=== PATIENT | male | born 1985 | race African-American/Black ===

== ENCOUNTER 2021-04-26 16:14 | Inpatient (IN) ==
[2021-04-26] MEDS ORDERED: levETIRAcetam 2,000 MG in 0.9 % SODIUM CHLORIDE 100 ML IV STA (16:18)
--- NOTE | 2021-04-26 16:27 | Emergency Department Note ---
Impression & Plan Intractable seizure disorder, Seizures, Noncompliance with medication regimen ED Provider Note NAME: [id number] INTERLOCHEN AGE: 35 SEX: M : 1985 ARRIVES VIA: Ambulance INFORMANT: Patient, EMS ED PROVIDER(S): Alexy Guardado DO CHIEF COMPLAINT: Seizure HPI: The patient is a 35-year-old male who presented to the emergency department from the [facility] for an evaluation of seizure. The patient states that he had an episode of seizure while he was in his bunk. The patient was given IM Ativan. He was witnessed to have approximately 6 seizures prior to arrival. Reportedly the patient has not been compliant with his outpatient medication regimen over the last week but he admits to me that this been much longer since he has taken his medications. He has a history of seizure disorder since his late teens. He denies having any recent trauma. He denies having any headaches. He has had no recent drug ingestions and denies any previous drug or alcohol abuse. The patient states he has a headache. He is slow to answer questions. The patient reportedly is in normal health otherwise. He has had no fevers or coughing. He has had no previous difficulty ambulating. As previously stated he was given IM Ativan after having multiple seizures. ROS: See above HPI for pertinent positives & negatives. A total of 10 systems reviewed and were otherwise negative. PAST MEDICAL HISTORY: See Below PAST SURGICAL HISTORY: See Below FAMILY HISTORY: See Below SOCIAL HISTORY: See Below HOME MEDICATIONS: See Below ALLERGIES: See Below VITALS: See Below PHYSICAL EXAMINATION: GENERAL: The patient is awake to verbal commands. He is slow to answer questions but does follow commands correctly. EYES: The conjunctivae are clear. The pupils are round and reactive. EARS, NOSE, MOUTH AND THROAT: The nose is without any evidence of any deformity. NECK: The neck is nontender and supple. RESPIRATORY: Normal respiratory effort is noted there is no evidence of wheezing rhonchi or rales CARDIOVASCULAR: Regular rate and rhythm noted there no murmurs rubs or gallops normal S1 normal S2. GASTROINTESTINAL: The abdomen is soft. Abdomen is nontender. MUSCULOSKELETAL/EXTREMITIES: There is no evidence of gross deformity full range of motion is noted in the hips and shoulders. SKIN: There is no obvious evidence of any rash. There are no petechiae, pallor or cyanosis noted. NEUROLOGIC: Patient is awake and oriented to person place and situation. Patellar tendon reflexes are 1+ bilaterally. MEDICAL DECISION MAKING: The patient is a 35-year-old male who presented to emergency department for an evaluation of seizure. The patient had multiple seizures at the [facility] prior to arrival. He was treated with Ativan. Upon arrival he was no longer seizing and was able to give some history. He was having effects from the benzodiazepine. The patient started having seizures while in the emergency department. When he told me he was noncompliant with his medications a dose of Keppra was ordered. He then started having seizures and was ordered fosphenytoin followed by valproic acid. He was also given multiple doses of benzodiazepines. The patie nt had some lethargy after the benzodiazepines. He was placed on supplemental oxygen. He was reevaluated multiple times. Consideration for intubation was taken however the patient started to improve and ultimately did not require intubation. He did have 1 more seizure after I talked the admitting team. This was short-lived. I discussed the patient's laboratory and radiographic studies with him. [facility] They have agreed to evaluate the patient in the emergency department for further management and disposition. Triage Nursing notes reviewed. Prior medical records reviewed Vital Signs: reviewed and remarkable for no significant abnormalities Differential diagnosis: Epilepsy, infection, hypoglycemia, electrolyte abnormalities, cardiac sources, intracerebral event, trauma, toxicologic, neurologic, syncope, as well as other pathologies. ER treatment provided: See below Diagnostics interpreted by me: ECG: EKG was obtained in the emergency department. My interpretation is normal sinus rhythm at 33 bpm. There is no ectopy. There was no acute ST segment abnormalities noted. No previous tracing was available. Cardiac Monitoring: An order was placed for continuous cardiac monitoring. The monitor shows a rate of 70 bpm with sinus rhythm. Laboratory studies: As stated above and show below. Imaging studies: See below Consultation(s): I discussed this case with Dr. Guy who is [facility]. He would like me to discuss this case with the logistics support group. I discussed this case with Dr. Dimas who is on for logistics support. ED COURSE: Procedures: none Critical Care: I have personally spent greater than 55 minutes of critical care time in the direct management of this patient. This includes bedside care, interpretation of diagnostic studies, and testing, discussion with consultants, patient, and family members, and other required patient management activities. This 55 minutes is in excess of all separately billable procedures. Past Med/Surg History Medical History (Updated 04/26/21 @ 23:08 by Alexy Guardado DO) Asthma Hypertension Seizures Social History (Updated 04/26/21 @ 16:25 by Alexy Guardado DO) Smoking Status: Former smoker Tobacco Type: Cigarettes Hx Alcohol Use: No Hx Substance Use: No Feels Safe at Home: Yes Allergies Allergies Allergy/AdvReac Type Severity Reaction Status Date / Time brown Allergy Unknown Verified 04/26/21 17:35 Penicillins Allergy Unknown Verified 04/26/21 17:35 ONIONS Allergy Unknown Uncoded 04/26/21 17:35 Home Meds Home Medications Medication Instructions Recorded Confirmed amlodipine 10 mg tablet 10 mg PO DAILY 04/26/21 04/26/21 aripiprazole 15 mg tablet 15 mg PO DAILY 04/26/21 04/26/21 hydroxyzine HCl 50 mg tablet 100 mg PO HS 04/26/21 04/26/21 levalbuterol tartrate 45 2 inh INHALATION QID PRN 04/26/21 04/26/21 mcg/actuation aerosol inhaler (Xopenex HFA) levetiracetam 750 mg tablet 750 mg PO BID 04/26/21 04/26/21 phenytoin sodium extended 100 mg 200 mg PO BID 04/26/21 04/26/21 capsule (Dilantin Extended) topiramate 50 mg tablet 50 mg PO HS 04/26/21 04/26/21 trazodone 150 mg tablet 150 mg PO HS 04/26/21 04/26/21 Results & Data (ED) Vital Signs Vital Signs - 24 hr 04/26/21 16:24 04/26/21 16:44 04/26/21 16:45 Temperature 37.0 C Temperature Source Oral Pulse Rate 76 63 65 Pulse Rate [Finger] Pulse Rate from SpO2 Sensor 64 66 Respiratory Rate 20 12 15 Respiratory Effort / Characteristics Non-Labored Spontaneous Respiratory Depth Normal Respiratory Pattern Regular Blood Pressure 136/99 Blood Pressure [Left Arm] Blood Pressure Mean 111 Blood Pressure Mean [Left Arm] Pulse Oximetry 97 95 96 Oxygen Delivery Method Room Air Oxygen Flow Rate Fraction of Inspired Oxygen Sepsis Recent Fever Within 48 Hours No Sepsis New/Unexplained Change in Mental Status N/A Sepsis Action Taken by Nursing No Action Required 04/26/21 17:00 04/26/21 17:16 04/26/21 17:20 Temperature Temperature Source Pulse Rate 87 Pulse Rate [Finger] 122 H Pulse Rate from SpO2 Sensor 90 88 Respiratory Rate 20 22 Respiratory Effort / Characteristics Respiratory Depth Respiratory Pattern Blood Pressure 138/87 Blood Pressure [Left Arm] 161/93 H Blood Pressure Mean 104 Blood Pressure Mean [Left Arm] 115 Pulse Oximetry 87 L 95 97 Oxygen Delivery Method Room Air Oxygen Flow Rate Fraction of Inspired Oxygen Sepsis Recent Fever Within 48 Hours Sepsis New/Unexplained Change in Mental Status Sepsis Action Taken by Nursing 04/26/21 17:30 04/26/21 17:31 04/26/21 17:53 Temperature Temperature Source Pulse Rate 99 H 99 H Pulse Rate [Finger] 103 H Pulse Rate from SpO2 Sensor 101 H Respiratory Rate 10 L 22 Respiratory Effort / Characteristics Non-Labored Spontaneous Respiratory Depth Respiratory Pattern Blood Pressure 128/73 Blood Pressure [Left Arm] Blood Pressure Mean 91 Blood Pressure Mean [Left Arm] Pulse Oximetry 97 97 Oxygen Delivery Method High Flow Nasal Cannula Oxygen Flow Rate 25 Fraction of Inspired Oxygen 45 Sepsis Recent Fever Within 48 Hours Sepsis New/Unexplained Change in Mental Status Sepsis Action Taken by Nursing 04/26/21 18:00 04/26/21 18:15 04/26/21 18:30 Temperature Temperature Source Pulse Rate 72 94 H 90 Pulse Rate [Finger] Pulse Rate from SpO2 Sensor 75 89 82 Respiratory Rate 16 18 15 Respiratory Effort / Characteristics Respiratory Depth Respiratory Pattern Blood Pressure 119/81 Blood Pressure [Left Arm] Blood Pressure Mean 93 Blood Pressure Mean [Left Arm] Pulse Oximetry 98 95 87 L Oxygen Delivery Method Oxygen Flow Rate Fraction of Inspired Oxygen Sepsis Recent Fever Within 48 Hours Sepsis New/Unexplained Change in Mental Status Sepsis Action Taken by Nursing 04/26/21 18:45 04/26/21 19:00 04/26/21 19:10 Temperature Temperature Source Pulse Rate Pulse Rate [Finger] Pulse Rate from SpO2 Sensor 93 H 88 78 Respiratory Rate Respiratory Effort / Characteristics Respiratory Depth Respiratory Pattern Blood Pressure 126/78 Blood Pressure [Left Arm] Blood Pressure Mean 94 Blood Pressure Mean [Left Arm] Pulse Oximetry 97 95 96 Oxygen Delivery Method Oxygen Flow Rate Fraction of Inspired Oxygen Sepsis Recent Fever Within 48 Hours Sepsis New/Unexplained Change in Mental Status Sepsis Action Taken by Nursing 04/26/21 19:21 04/26/21 19:30 04/26/21 19:41 Temperature Temperature Source Pulse Rate 78 86 Pulse Rate [Finger] Pulse Rate from SpO2 Sensor Respiratory Rate Respiratory Effort / Characteristics Respiratory Depth Respiratory Pattern Blood Pressure 121/98 113/72 140/93 Blood Pressure [Left Arm] Blood Pressure Mean 105 85 108 Blood Pressure Mean [Left Arm] Pulse Oximetry 98 97 Oxygen Delivery Method Room Air Room Air Oxygen Flow Rate Fraction of Inspired Oxygen Sepsis Recent Fever Within 48 Hours Sepsis New/Unexplained Change in Mental Status Sepsis Action Taken by Nursing 04/26/21 19:51 04/26/21 20:03 Temperature Temperature Source Pulse Rate 82 Pulse Rate [Finger] Pulse Rate from SpO2 Sensor Respiratory Rate Respiratory Effort / Characteristics Respiratory Depth Respiratory Pattern Blood Pressure Blood Pressure [Left Arm] Blood Pressure Mean Blood Pressure Mean [Left Arm] Pulse Oximetry 99 98 Oxygen Delivery Method Room Air Room Air Oxygen Flow Rate Fraction of Inspired Oxygen Sepsis Recent Fever Within 48 Hours Sepsis New/Unexplained Change in Mental Status Sepsis Action Taken by Care Home Medications Current Medication List: was personally reviewed by me Laboratory Data Attestation: I reviewed the patient's lab results. Result diagrams: 04/26/21 16:30 04/26/21 16:30 Lab Results 04/26/21 04/26/21 04/26/21 Range/Units 16:30 16:30 16:30 WBC 3.69 L (4.8-10.8) K/uL RBC 5.12 (4.7-6.1) M/uL Hgb 16.2 (14.0-18.0) g/dL Hct 47.7 (42-52) % MCV 93.2 (80-100) fL MCH 31.6 (25-34) pg MCHC 34.0 (32-36) g/dL RDW Std Deviation 41.3 (36.4-46.3) fL RDW Coeff of Kaushik 12.2 (11.5-14.5) % Plt Count 205 (130-400) K/uL MPV 10.9 H (7.4-10.4) fL Immature Gran % (Auto) 0.0 % Neut % (Auto) 56.4 % Lymph % (Auto) 35.2 % Whitman % (Auto) 7.3 % Eos % (Auto) 0.3 % Baso % (Auto) 0.8 % Neut # (Auto) 2.08 (1.4-6.5) K/uL Lymph # (Auto) 1.30 (1.2-3.4) K/uL Whitman # (Auto) 0.27 (0.11-0.59) K/uL Eos # (Auto) 0.01 (0-0.5) K/uL Baso # (Auto) 0.03 (0-0.2) K/uL Immature Gran # (Auto) 0.00 (0.00-0.02) K/uL Sodium 141 (136-145) mmol/L Potassium 4.2 (3.5-5.1) mmol/L Chloride 109 H (98-107) mmol/L Carbon Dioxide 27 (21-32) mmol/L Anion Gap 5.0 (3-11) BUN 14 (7-18) mg/dl Creatinine 1.31 (0.6-1.4) mg/dl Est Cr Clr Drug Dosing 103.7 ml/min Est GFR ( Amer) 82.3 ml/min Est GFR (Non-Af Amer) 71.0 ml/min BUN/Creatinine Ratio 10.5 (10-20) Glucose 89 (70-99) mg/dl Calcium 8.5 (8.5-10.1) mg/dl Magnesium 2.0 (1.8-2.4) mg/dl Total Bilirubin 0.4 (0.2-1) mg/dl AST 18 (15-37) U/L ALT 24 (12-78) Alkaline Phosphatase 75 (45-117) U/L Total Creatine Kinase 281 (39-308) U/L Troponin I < 0.015 (0-0.045) ng/ml Total Protein 8.4 H (6.4-8.2) gm/dl Albumin 4.1 (3.4-5.0) gm/dl Globulin 4.3 H (2.5-4.0) gm/dl Albumin/Globulin Ratio 1.0 (0.9-2) Urine Color Urine Appearance (Clear) Urine pH (4.5-7.5) Ur Specific [place] (1.000-1.030) Urine Protein (Negative) Urine Glucose (UA) (Negative) Urine Ketones (Negative) Urine Blood (Negative) Urine Nitrite (Negative) Urine Bilirubin (Negative) Urine Urobilinogen (Negative) Ur Leukocyte Esterase (Negative) Urine Opiates Screen (Neg) Ur Methadone, Qual (Neg) Urine Barbiturates (Neg) Phenytoin < 0.4 L (10-20) mcg/ml Ur Phencyclidine (PCP) (Neg) U Amphetamin/Meth Scrn (Neg) MDMA (Ecstasy) Screen (Neg) U Benzodiazepines Scrn (Neg) Ur Cocaine Metabolite (Neg) U Marijuana (THC) Screen (Neg) SARS-CoV-2, RNA, NAAT (NEGATIVE) 04/26/21 04/26/21 04/26/21 Range/Units 17:25 18:55 18:55 WBC (4.8-10.8) K/uL RBC (4.7-6.1) M/uL Hgb (14.0-18.0) g/dL Hct (42-52) % MCV (80-100) fL MCH (25-34) pg MCHC (32-36) g/dL RDW Std Deviation (36.4-46.3) fL RDW Coeff of Kaushik (11.5-14.5) % Plt Count (130-400) K/uL MPV (7.4-10.4) fL Immature Gran % (Auto) % Neut % (Auto) % Lymph % (Auto) % Whitman % (Auto) % Eos % (Auto) % Baso % (Auto) % Neut # (Auto) (1.4-6.5) K/uL Lymph # (Auto) (1.2-3.4) K/uL Whitman # (Auto) (0.11-0.59) K/uL Eos # (Auto) (0-0.5) K/uL Baso # (Auto) (0-0.2) K/uL Immature Gran # (Auto) (0.00-0.02) K/uL Sodium (136-145) mmol/L Potassium (3.5-5.1) mmol/L Chloride (98-107) mmol/L Carbon Dioxide (21-32) mmol/L Anion Gap (3-11) BUN (7-18) mg/dl Creatinine (0.6-1.4) mg/dl Est Cr Clr Drug Dosing ml/min Est GFR ( Amer) ml/min Est GFR (Non-Af Amer) ml/min BUN/Creatinine Ratio (10-20) Glucose (70-99) mg/dl Calcium (8.5-10.1) mg/dl Magnesium (1.8-2.4) mg/dl Total Bilirubin (0.2-1) mg/dl AST (15-37) U/L ALT (12-78) Alkaline Phosphatase (45-117) U/L Total Creatine Kinase (39-308) U/L Troponin I (0-0.045) ng/ml Total Protein (6.4-8.2) gm/dl Albumin (3.4-5.0) gm/dl Globulin (2.5-4.0) gm/dl Albumin/Globulin Ratio (0.9-2) Urine Color Yellow Urine Appearance Clear (Clear) Urine pH 7.0 (4.5-7.5) Ur Specific [place] 1.026 (1.000-1.030) Urine Protein Negative (Negative) Urine Glucose (UA) Negative (Negative) Urine Ketones Trace H (Negative) Urine Blood Negative (Negative) Urine Nitrite Negative (Negative) Urine Bilirubin Negative (Negative) Urine Urobilinogen Negative (Negative) Ur Leukocyte Esterase Negative (Negative) Urine Opiates Screen Neg (Neg) Ur Methadone, Qual Neg (Neg) Urine Barbiturates Neg (Neg) Phenytoin (10-20) mcg/ml Ur Phencyclidine (PCP) Neg (Neg) U Amphetamin/Meth Scrn Neg (Neg) MDMA (Ecstasy) Screen Neg (Neg) U Benzodiazepines Scrn Neg (Neg) Ur Cocaine Metabolite Neg (Neg) U Marijuana (THC) Screen Neg (Neg) SARS-CoV-2, RNA, NAAT NEGATIVE (NEGATIVE) Administered Medications Discontinued Medications Sodium Chloride (Nss 1000ml) 1,000 mls @ 999 mls/hr IV .[id number] VALORIE Stop: 04/26/21 17:30 Last Infusion: 04/26/21 19:44 Dose: 999 mls/hr Documented by: [id number] Admin: 04/26/21 17:06 Dose: 999 mls/hr Documented by: [id number] Levetiracetam 2,000 mg/ Sodium (Chloride) 100 mls @ 440 mls/hr IV NOW STA Stop: 04/26/21 16:31 Last Infusion: 04/26/21 17:05 Dose: 0 mls/hr Documented by: [id number] Admin: 04/26/21 16:50 Dose: 440 mls/hr Documented by: [id number] Lorazepam (Ativan) 1 mg in 2 mls @ 2 mls/min IV NOW STA Stop: 04/26/21 16:57 Last Admin: 04/26/21 17:08 Dose: 2 mls/min Documented by: [id number] Fosphenytoin Sodium 2,000 mgpe (/ Sodium Chloride) 90 mls @ 420 mls/hr IV NOW STA Stop: 04/26/21 17:06 Last Infusion: 04/26/21 17:31 Dose: 0 mls/hr Documented by: [id number] Admin: 04/26/21 17:18 Dose: 420 mls/hr Documented by: [id number] Valproic Acid 2,000 mg/ (Dextrose) 120 mls @ 120 mls/hr IV ONE ONE Stop: 04/26/21 17:27 Last Infusion: 04/26/21 19:44 Dose: 120 mls/hr Documented by: [id number] Admin: 04/26/21 17:36 Dose: 120 mls/hr Documented by: [id number] Lorazepam (Lorazepam 2 Mg/Ml Vial (Im Use)) Confirm Administered Dose 2 mg .ROUTE .STK-MED ONE Stop: 04/26/21 16:53 Last Admin: 04/26/21 16:56 Dose: 1 mg Documented by: [id number] Lorazepam (Lorazepam 2 Mg/Ml Vial (Im Use)) Confirm Administered Dose 2 mg .ROUTE .STK-MED ONE Stop: 04/26/21 17:03 Last Admin: 04/26/21 17:08 Dose: Not Given Documented by: [id number] Miscellaneous (Rapid Sequence Induction Bag) Confirm Administered Dose 1 ea .ROUTE .STK-MED ONE Stop: 04/26/21 17:13 Last Admin: 04/26/21 18:13 Dose: Not Given Documented by: [id number] Imaging Data Radiologist's Impression: Chest X-Ray 04/26/21 16:18 XR chest 1V portable CLINICAL HISTORY: Seizure. COMPARISON STUDY: No previous studies for comparison. FINDINGS: Lung volumes are normal. Lungs are clear. There is no pneumothorax or pleural effusion. Cardiac size is normal. Mediastinal contours are normal. There is no evidence for pulmonary edema. There are several possible age indeterminate left-sided rib fractures. IMPRESSION: Possible age indeterminate left-sided rib fractures. No pneumothorax. ACT 112: Negative or not required by law. Electronically signed by: Javier Jane M.D. 04/26/2021 4:[address] 04/26/21 16:18 CT head/brain wo con CLINICAL HISTORY: SZ Technique: Contiguous axial CT images of the head were acquired from the base of the skull to the vertex without intravenous contrast administration. Images were viewed in brain, subdural and bone windows. Automated dose lowering techniques and/or adjustment according to patient size were utilized for this exam. Comparison: None available at the time of this dictation. Findings: The ventricles, basal cisterns, and cerebral sulci are normal. There is no acute intracranial hemorrhage or evidence of acute territorial infarction. Neither mass effect, shift of the midline structures, nor abnormal extra-axial fluid collections are shown. Imaged portions of the paranasal sinuses and mastoid air cells are clear. The orbits appear normal. There are no acute fractures of the calvaria or scalp swelling. Impression: No acute intracranial hemorrhage, no evidence of acute territorial infarction or other acute intracranial disease process. ACT 112: Negative or not required by law. Electronically signed by: Chava Johnson M.D. 04/26/2021 6:00 PM Chest X-Ray 04/26/21 20:13 XR chest 1V portable CLINICAL HISTORY: concern for aspiration TECHNIQUE: Single frontal radiograph of the chest was obtained. Comparison: Comparison is made to chest one view 04/26/2021 at 1622 hours FINDINGS: Exam is limited by underpenetration. The cardiomediastinal silhouette is normal. No airspace opacity is seen. No evidence of pleural effusion or pneumothorax. IMPRESSION: No new airspace opacity is seen to suggest aspiration. ACT 112: Negative or not required by law. Electronically signed by: Chava Johnson M.D. 04/26/2021 8:49 PM Discharge Plan Visit Data Chief Complaint: Seizure Stated Complaint: SEIZURE ED Provider: Alexy Guardado Discharge Problem: Intractable seizure disorder, Seizures, Noncompliance with medication regimen Patient Disposition: Admitted As Inpatient
[2021-04-26] MEDS ORDERED: SODIUM CHLORIDE 0.9% 1000ML 1,000 ML IV SCH (16:30)
[2021-04-26 16:44] LABS: Basophils # (auto) 0.03 K/uL (0-0.2); Basophils % (auto) 0.8 %; Eosinophils # (auto) 0.01 K/uL (0-0.5); Eosinophils % (auto) 0.3 %; Hematocrit (blood only) 47.7 % (42-52); Hemoglobin 16.2 g/dL (14.0-18.0); Lymphocytes % (auto) 35.2 %; Mean Corpuscular Hemoglobin 31.6 pg (25-34); Mean Corpuscular Volume 93.2 fL (80-100); Mean Platelet Volume 10.9 fL (7.4-10.4); Monocytes # (auto) 0.27 K/uL (0.11-0.59); Monocytes % (auto) 7.3 %; Neutrophils # (auto) 2.08 K/uL (1.4-6.5); Neutrophils % (auto) 56.4 %; Platelet Count 205 K/uL (130-400); RDW Coefficient of Variation 12.2 % (11.5-14.5); RDW Standard Deviation 41.3 fL (36.4-46.3); Red Blood Count 5.12 M/uL (4.7-6.1); White Blood Count 3.69 K/uL (4.8-10.8)
--- NOTE | 2021-04-26 16:44 | XRay Report ---
XR chest 1V portable CLINICAL HISTORY: Seizure. COMPARISON STUDY: No previous studies for comparison. FINDINGS: Lung volumes are normal. Lungs are clear. There is no pneumothorax or pleural effusion. Car diac size is normal. Mediastinal contours are normal. There is no evidence for pulmonary edema. There are several possible age indeterminate left-sided rib fractures. IMPRESSION: Possible age indeterminate left-sided rib fractures. No pneumothorax. ACT 112: Negative or not required by law. Electronically signed by: Javier Jane M.D. 04/26/2021 4:42 PM
[2021-04-26] MEDS ORDERED: LORazepam 2 MG/ML VIAL (IM USE) ONE ×2 (16:52→17:02)
[2021-04-26] MEDS ORDERED: LORazepam 1 MG/2 ML VIAL IV STA (16:56)
[2021-04-26] MEDS ORDERED: FOSPHENYTOIN IV STA (16:57)
[2021-04-26] MEDS ORDERED: SODIUM CHLORIDE IV STA (16:57)
[2021-04-26 17:03] LABS: Alanine Aminotransferase 24 (12-78); Albumin Level 4.1 gm/dl (3.4-5.0); Aspartate Aminotransferase 18 U/L (15-37); BUN Creatinine Ratio 10.5 (10-20); Blood Urea Nitrogen 14 mg/dl (7-18); Calcium 8.5 mg/dl (8.5-10.1); Carbon Dioxide 27 mmol/L (21-32); Chloride 109 mmol/L (98-107); Creatinine Clr Calc Pharmacy 103.7 ml/min; Est GFR (African American) 82.3 ml/min; Glucose 89 mg/dl (70-99); Potassium 4.2 mmol/L (3.5-5.1); Sodium 141 mmol/L (136-145)
[2021-04-26 17:08] LABS: Alkaline Phosphatase 75 U/L (45-117); Bilirubin,Total 0.4 mg/dl (0.2-1); Creatine Kinase 281 U/L (39-308); Globulin 4.3 gm/dl (2.5-4.0); Total Protein 8.4 gm/dl (6.4-8.2); Troponin I < 0.015 ng/ml (0-0.045)
[2021-04-26] MEDS ORDERED: RAPID SEQUENCE INDUCTION BAG ONE (17:12)
[2021-04-26] MEDS ORDERED: VALPROATE SOD 2,000 MG in DEXTROSE 5% 100 ML IV ONE (17:26)
--- NOTE | 2021-04-26 18:02 | CT Scan Report ---
CT head/brain wo con CLINICAL HISTORY: SZ Technique: Contiguous axial CT images of the head were acquired from the base of the skull to the scott zackery without intravenous contrast administration. Images were viewed in brain, subdural and [facility]. Automated dose lowering techniques and/or adjustment according to patient size were utilized for this exam. Comparison: None available at the time of this dictation. Findings: The ventricles, basal cisterns, and cerebral sulci are normal. There is no acute intracranial hemorrh age or evidence of acute territorial infarction. Neither mass effect, shift of the midline structures , nor abnormal extra-axial fluid collections are shown. Imaged portions of the paranasal sinuses and mastoid air cells are clear. The orbits appear normal. There are no acute fractures of the calvaria or scalp swelling. Impression: No acute intracranial hemorrhage, no evidence of acute territorial infarction or other acute intracra nial disease process. ACT 112: Negative or not required by law. Electronically signed by: Chava Johnson M.D. 04/26/2021 6:00 PM
[2021-04-26 19:08] LABS: Appearance Urine Clear (Clear); Bilirubin Urine Negative (Negative); Blood Urine Negative (Negative); Color Urine Yellow; Glucose Urine UA Negative (Negative); Ketones Urine Trace (Negative); Leukocyte Esterase Urine Negative (Negative); Nitrite Urine Negative (Negative); Protein Urine Negative (Negative); Specific Gravity Urine 1.026 (1.000-1.030); Urobilinogen Urine Negative (Negative)
[2021-04-26 19:39] LABS: Amphetamines+Metham, Urine Neg (Neg); Barbiturates, Urine Neg (Neg); Benzodiazepine, Urine Neg (Neg); Cocaine, Urine Neg (Neg); MDMA (Ecstacy), Urine Neg (Neg); Methadone, Urine Neg (Neg); Opiate, Urine Neg (Neg); Phencyclidine, Urine Neg (Neg)
[2021-04-26] MEDS ORDERED: LORazepam 1 MG/2 ML VIAL IV PRN (20:45)
--- NOTE | 2021-04-26 20:51 | XRay Report ---
XR chest 1V portable CLINICAL HISTORY: concern for aspiration TECHNIQUE: Single frontal radiograph of the chest was obtained. Comparison: Comparison is made to chest one view 04/26/2021 at 1622 hours FINDINGS: Exam is limited by underpenetration. The cardiomediastinal silhouette is normal. No airspace opacity is seen. No evidence of pleural effusion or pneumothorax. IMPRESSION: No new airspace opacity is seen to suggest aspiration. ACT 112: Negative or not required by law. Electronically signed by: Chava Johnson M.D. 04/26/2021 8:49 PM
--- NOTE | 2021-04-26 20:56 | History & Physical Report ---
Date of Service April 26, 2021 Assessment & Plan (1) Seizures: Plan: 35 yo M w/ pMHx. of asthma, HTN, and seizures presents after a seizure. admitted to PCU Seizure, likely secondary to medication non-compliance treated with Lorazepam, Fosphenytoin, Keppra in the ER - placed back on home med's - Keppra, Dilantin, Topiramate - neuro consulted - PRN Ativan available Hypoxia thought to be due to aspiration event, recovered quickly requiring 25L HFNC, titrating down with clinical improvement COVID negative - as needed oxygen, avoid BiPAP if possible - placed on Aztreonam and Vancomycin for concern for aspiration pna, could deescalate if patient continues to clinically improves - duonebs available HTN - continue Amlodipine mood disorder - continue Aripiprazole, Hydroxyzine Asthma - continue Xopenex DVT: SCD's Code: full Diet: NPO (due to aspiration risk 2/2 sedation) History of Present Illness Chief Complaint: seizure Primary Care Provider: ANABELA Jimenez Mahadariel Lam is here for a seizure. He has a past medical history of asthma, HTN, and seizures presents after a seizure and receiving 2 X 1 mg of Ativan at the correctional facility prior to arrival. He had not been taking his AED's since he had a medication change. He was sedated initially and only able to answer a few questions prior to going back to sleep while I talked with him. ED course: Lorazepam 1 mg, Fospehnytoin, Keppra, fluids Allergies Allergy/AdvReac Type Severity Reaction Status Date / Time brown Allergy Unknown Verified 04/26/21 17:35 Penicillins Allergy Unknown Verified 04/26/21 17:35 ONIONS Allergy Unknown Uncoded 04/26/21 17:35 Home Medications Medication Instructions Recorded Confirmed Type amlodipine 10 mg tablet 10 mg PO DAILY 04/26/21 04/26/21 History aripiprazole 15 mg tablet 15 mg PO DAILY 04/26/21 04/26/21 History hydroxyzine HCl 50 mg tablet 100 mg PO HS 04/26/21 04/26/21 History levalbuterol tartrate 45 2 inh INHALATION QID PRN 04/26/21 04/26/21 History mcg/actuation aerosol inhaler (Xopenex HFA) topiramate 50 mg tablet 50 mg PO HS 04/26/21 04/26/21 History trazodone 150 mg tablet 150 mg PO HS 04/26/21 04/26/21 History gabapentin 100 mg capsule 100 mg PO TID 30 Days #90 cap 04/27/21 Rx levetiracetam 750 mg tablet 1,000 mg PO BID 30 Days #0 tab 04/27/21 04/26/21 Rx Past Med/Surg History Medical History Asthma Hypertension Seizures Social History Smoking Status: Former smoker Tobacco Type: Cigarettes Hx Alcohol Use: No Hx Substance Use: No Feels Safe at Home: Yes Assistive Devices: None Review of Systems Review of Systems: Constitutional: denies fevers, chills, nausea, vomiting Cardiac: denies chest pain, palpitations GI: denies constipation, diarrhea ENT: denies rhinorrhea, sore throat, congestion Physical Exam Constitutional: well developed and well nourished Eyes: no EOM movement deficit - equally reactive pupils ENMT: external ear and nose normal, oropharynx normal Neck: normal visual inspection Respiratory: normal respiratory effort, lungs clear to auscultation Cardiovascular: RRR, no murmur, no edema Skin: no rashes, warm and dry Neurologic: CN's II-XI intact bilaterally; no focal motor deficits and not confused Speech / Cognition: normal speech Psychiatric: Orientation: cooperative Results & Data Results & Data ([facility] [place]) Vital Signs (Past 12 Hours) Vital Signs Temp Pulse Pulse Resp BP BP Pulse Ox 04/26/21 20:26 76 18 158/89 H 98 04/26/21 20:03 82 98 04/26/21 19:51 99 04/26/21 19:41 86 140/93 97 04/26/21 19:30 78 113/72 98 04/26/21 19:21 121/98 04/26/21 19:10 96 04/26/21 19:00 126/78 95 04/26/21 18:45 97 04/26/21 18:30 90 15 87 L 04/26/21 18:15 94 H 18 95 04/26/21 18:00 72 16 119/81 98 04/26/21 17:53 99 H 04/26/21 17:31 103 H 22 97 04/26/21 17:30 99 H 10 L 128/73 97 04/26/21 17:20 122 H 22 161/93 H 97 04/26/21 17:16 87 20 95 04/26/21 17:00 138/87 87 L 04/26/21 16:45 65 15 96 04/26/21 16:44 63 12 95 04/26/21 16:24 37.0 C 76 20 136/99 97 CBC Results Results Complete Blood Count Results: RBC 4.97 M/uL (4.7-6.1) 04/27/21 WBC 4.41 K/uL (4.8-10.8) L 04/27/21 Hgb 15.6 g/dL (14.0-18.0) 04/27/21 Hct 46.6 % (42-52) 04/27/21 Plt Count 213 K/uL (130-400) 04/27/21 Chemistry (BMP) Results BMP Results: Sodium 140 mmol/L (136-145) 04/27/21 Potassium 3.8 mmol/L (3.5-5.1) 04/27/21 Chloride 107 mmol/L (98-107) 04/27/21 Carbon Dioxide 28 mmol/L (21-32) 04/27/21 Anion Gap 5.0 (3-11) 04/27/21 BUN 9 mg/dl (7-18) 04/27/21 Creatinine 1.15 mg/dl (0.6-1.4) 04/27/21 Glucose 73 mg/dl (70-99) 04/27/21 Code Status & VTE Plan VTE Prophylaxis Plan VTE Prophylaxis will be ordered: Yes Supervising Physician Co-Signing Physician Notes Attending addendum: I have physically seen this patient, have supervised the medical residents activities, and agree with the H&P unless as otherwise noted. Assessment and Plan: Seizure activity/seizure disorder- Initially presented as status epilepticus, secondary to medical noncompliance Status post fosphenytoin IV, Keppra IV and lorazepam IV in the ED Resume home meds that he supposed to be taking: Keppra, Dilantin and topiramate No need to order EEG or MRI since this is due to patient not taking medications No signs of infection Neurology consulted Remaining orders and notations as noted Resident Activity Tracking Resident Involvement: Resident Care Provided Care Provided: Adult [facility]
[2021-04-26] MEDS ORDERED: POLYETHYLENE (MIRALAX) 17 GM PACK PO PRN (23:14)
[2021-04-26] MEDS ORDERED: VANCOMYCIN HCL 1,750 MG in SODIUM CHLORIDE 0.9% 500 ML IV SCH (23:14)
[2021-04-26] MEDS ORDERED: ACETAMINOPHEN 325 MG TAB PO PRN (23:14)
[2021-04-26] MEDS ORDERED: LEVALBUTEROL TARTRATE 15 GM HFA.AER.AD INH PRN (23:14)
[2021-04-26] MEDS ORDERED: VANCOMYCIN CONSULT ACTIVE PRN (23:14)
[2021-04-26] MEDS ORDERED: VANCOMYCIN HCL 2,250 MG in SODIUM CHLORIDE 0.9% 500 ML IV ONE (23:30)
[2021-04-27] MEDS: levETIRAcetam 250 MG TAB PO SCH ×2 (00:35→08:08)
[2021-04-27] MEDS: PHENYTOIN SODIUM ER 100 MG CAP PO SCH ×2 (00:35→08:09)
[2021-04-27] MEDS: SODIUM CHLORIDE 0.9% 1000ML 1,000 ML IV SCH ×2 (00:36→10:25)
[2021-04-27] MEDS ORDERED: AZTREONAM 2,000 MG in DEXTROSE 5% 100 ML IV SCH (01:00)
--- NOTE | 2021-04-27 01:30 | Pharmacy Report ---
Pharmacy Abx Initial Consult - Date of Service April 27, 2021 - Pharmacy Dosing Scope Date of Consult: 04/26/21 Consultation requested by: Dr. Ritter Pharmacy is consulted to initiate Vancomycin IV dosing therapy, order appropriate labs and adjust drug dose/frequency. - Subjective The patient is a 35 year old M admitted on 04/26/21 20:22. - Objective Height: 6 ft Weight: 112.1 kg Vital Signs (Past 12hrs): Vital Signs Temp Pulse Pulse Resp BP BP Pulse Ox 04/27/21 01:00 70 17 151/82 H 99 04/27/21 00:50 62 13 98 04/27/21 00:40 16 99 04/27/21 00:30 20 98 04/27/21 00:20 18 135/89 96 04/27/21 00:10 20 96 04/27/21 00:00 68 17 120/73 94 04/26/21 23:50 58 L 16 94 04/26/21 23:40 62 20 97 04/26/21 23:30 60 13 137/83 95 04/26/21 23:20 65 12 97 04/26/21 23:10 63 23 119/77 97 04/26/21 23:00 20 96 04/26/21 22:50 18 97 04/26/21 22:40 20 97 04/26/21 22:30 17 130/79 98 04/26/21 22:20 20 98 04/26/21 22:10 21 98 04/26/21 22:00 18 112/66 98 04/26/21 21:50 20 117/66 100 04/26/21 21:40 20 136/75 98 04/26/21 21:30 70 15 97 04/26/21 21:20 79 19 98 04/26/21 21:10 82 17 98 04/26/21 21:00 78 19 94 04/26/21 20:50 72 21 94 04/26/21 20:40 79 19 97 04/26/21 20:30 82 18 99 04/26/21 20:26 76 18 158/89 H 98 04/26/21 20:23 97 04/26/21 20:03 82 98 04/26/21 19:51 99 04/26/21 19:41 86 140/93 97 04/26/21 19:30 78 113/72 98 04/26/21 19:21 121/98 04/26/21 19:10 96 04/26/21 19:00 126/78 95 04/26/21 18:45 97 04/26/21 18:30 90 15 87 L 04/26/21 18:15 94 H 18 95 04/26/21 18:00 72 16 119/81 98 04/26/21 17:53 99 H 04/26/21 17:31 103 H 22 97 04/26/21 17:30 99 H 10 L 128/73 97 04/26/21 17:20 122 H 22 161/93 H 97 04/26/21 17:16 87 20 95 04/26/21 17:00 138/87 87 L 04/26/21 16:45 65 15 96 04/26/21 16:44 63 12 95 04/26/21 16:24 37.0 C 76 20 136/99 97 Lab Results (24hrs): Laboratory Tests (24 Hours) 04/26/21 04/26/21 16:30 16:30 WBC 3.69 L Neut # (Auto) 2.08 Creatinine 1.31 Est Cr Clr Drug Dosing 103.7 Total Creatine Kinase 281 - Risk Factors for Resistance * Resident in an extended-care facility - Assessment & Plan Assessment 35 year old M ordered Vancomycin and aztreonam empirically for possible aspiration PNA. Plan Vancomycin IV * Loading dose: 2250mg (20 mg/kg) * Maintenance dose: 1250mg IV (~11 mg/kg) every 12 hours. * AUC/CATE is the preferred PK/PD target for vancomycin * AUC guided dosing is effective and associated with decreased risk of nephrotoxicity compared to traditional trough targets * The above dose is expected achieve target AUC/CATE of 400-600 mg/L.hr and may be associated with a 13% risk of nephrotoxicity * Will check a trough level in a few days if therapy is continued. Pharmacy will continue to follow and will adjust dose/frequency as necessary. Thank you.
[2021-04-27 05:02] LABS: Basophils # (auto) 0.02 K/uL (0-0.2); Basophils % (auto) 0.5 %; Eosinophils # (auto) 0.03 K/uL (0-0.5); Eosinophils % (auto) 0.7 %; Hematocrit (blood only) 46.6 % (42-52); Hemoglobin 15.6 g/dL (14.0-18.0); Lymphocytes # (auto) 1.75 K/uL (1.2-3.4); Lymphocytes % (auto) 39.7 %; Mean Corpuscular Hemoglobin 31.4 pg (25-34); Mean Corpuscular Hgb Conc 33.5 g/dL (32-36); Mean Corpuscular Volume 93.8 fL (80-100); Mean Platelet Volume 10.4 fL (7.4-10.4); Monocytes # (auto) 0.29 K/uL (0.11-0.59); Monocytes % (auto) 6.6 %; Neutrophils # (auto) 2.32 K/uL (1.4-6.5); Neutrophils % (auto) 52.5 %; Platelet Count 213 K/uL (130-400); RDW Coefficient of Variation 12.2 % (11.5-14.5); RDW Standard Deviation 41.8 fL (36.4-46.3); Red Blood Count 4.97 M/uL (4.7-6.1); White Blood Count 4.41 K/uL (4.8-10.8)
[2021-04-27 05:28] LABS: BUN Creatinine Ratio 8.2 (10-20); Creatinine Clr Calc Pharmacy 118.1 ml/min; Est GFR (African American) 96.4 ml/min; Est GFR (Non-African American) 83.2 ml/min; Magnesium 2.1 mg/dl (1.8-2.4); Phosphorus 2.7 mg/dl (2.5-4.9); Potassium 3.8 mmol/L (3.5-5.1)
--- NOTE | 2021-04-27 07:46 | Hospitalist Progress Note ---
Date of Service April 27, 2021 Assessment & Plan (1) Intractable seizure disorder: (2) Noncompliance with medication regimen: (3) Asthma: (4) Hypertension: (5) Seizures: Plan: Seizure secondary to not adhering to seizure medications. - Will advise Pt the importance of adhering to seizure medication - START gabapentin 100mg, three times daily, upon discharge and titrate upwards to goal of 300mg t.i.d. (or more); this is the last reported dose in the [facility] system -- CONTINUE levetiracetam, 750mg twice daily; can consider increasing to 1000mg twice daily, as patient reports this was his previously effective dose. -- Recommend continuing TopaMax -- STOP phenytoin -- patient is refusing to take - Encouraged to f/u with [facility] in order to schedule the VNS surgery Seizure DDx - Stroke Seizure Sx can mimic a stroke and his Head CT shows no presence of bleeding, which implies the possibility of Ischemic infarct. However, on PE the Pt has no focal deficits. Furthermore, his condition is improving which stands in contrast to ischemic stroke in which a patient's condition is unlikely to improve with time. In addition, aside from HTN this Pt does not have other risk factors associated with stroke. Seizure DDx - PNES (Conversion Disorder) - Possible conversion disorder. However, unlikely because his seizure activity was witnessed by others who can confirm that he did indeed have a seizure. Furthermore his condition improved with administration of IM Ativan. In addition, PNES most commonly occurs in women. Lastly, he has a well documented h/o of epilepsy. Seizure DDx - Encephalitis/Meningitis Seizure is a common Sx for Encephalitis/Meningitis. However Pt does not endorse Sx of fever and nuchal rigidity. In addition, aside from being belligerent to staff, he does not exhibit signs of confusion or depressed consciousness. Seizure DDx - Seizure Secondary to Electrolyte Disturbance - labs normal Seizure DDx - Seizure Secondary to Drugs -Toxicology negative Hypoxia - Intially thought to be aspiration event, but he recovered quickly. Pt does not endorse signs of SOB and his pulse ox is 96 on room air. - Stop Aztreonam and Vancomycin HTN - continue Amlodipine mood disorder - continue Aripiprazole, Hydroxyzine Asthma - continue Xopenex DVT: SCD's Code: full Diet: Normal Fluid: NS 1000 ml Q8H Admission and Anticipated Discharge Date Admission Date: April 26, 2021 Supervising Physician Co-Signing Physician Notes I personally examined the patient and verified all smith points of history and exam, discussed case, and agree with decision making with Lawrence DASILVA. Feeling exhausted, but no further seizures. Neurology input greatly appreciated. In discussion of plan, patient notes at first quite adamantly that he is not going to take medicines that he does not approve of, noting that he does not like the side effects. We have an extensive discussion of risks and benefitsstarting with the unfortunate reality that when someone has a fairly brittle seizure disorder, as he appears to have, the "extremes" of choices pretty much amount to having completely uncontrolled seizures but not having any medicine side effects, or having seizures under control, but having sedation/mental slowing/etc. for medications. Discussed from there, that the goal would be to try to titrate medicines to the lowest dose as needed to control the seizures, and to try to minimize side effects. Further, given that he is apparently being evaluated for surgical nerve stimulator, this would likely be very helpful in allowing reduction in meds as well, which would also allow reduction in med side effects. After all of this discussion, he is more amenable to medicines, but really only Keppra and gabapentin. Vitals noted, in general he is awake and alert pleasant no distress. HEENT normocephalic atraumatic mucous membranes moist. Breathing unlabored no accessory muscle use good effort. Skin shows no rashes no pallor or icterus. Neuro without focal deficits. Seizure disorderuncontrolled, due to nonadherence. Patient quite particular about medicationssee discussion above, while I would have preferred to send patient with medications per neurology recommendations, patient was clear that he would absolutely refused to take them. To that end, Keppra and gabapentin will certainly have more of a suppressive effect than doing nothing, which was his stated alternative. Therefore send him on that regimen. Trying to facilitate closer follow-up with [facility], and hopefully he will be able to have nerve stimulator placed in the near future. Currently stable for discharge. otherwise as above Subjective 35 y/o male with h/o of epilepsy and unknown cardiac condition presents for an episode of resolved seizure. He is a prisoner and states that he had a seizure while in his bunk bed. Describes the seizures that he blacked out and was shaking. He denies tongue biting or urinary incontinence. IV Ativan was administered in the fpc to Tx his seizure. He states because he moves [facility] the physicians are constantly changing his seizure medications. He states that he stopped taking his seizure medications about a month ago because it was making him too sleepy. He states he was diagnosed with epilepsy as a teenager. He was told his seizures is a result of multiple head trauma. He was being Tx by Neurology in [facility] and his condition was stable. He recently evaluated at [facility] for his epilepsy and was told you would be a good candidate for VNS (Vagal Nerve Stimulator) Surgery. That surgery has not been scheduled. He denies recent fevers, chills and NS. He states he is able to breathe just fine. PMHx: He states he has a "hole in the heart" but was not able to offer the name of the specific condition. He states he will get SOB with exertion. He is refusing IV placement. Physical Exam Physical Exam: General: NAD. Signs of drowsiness most likely from the multiple benzodiazepines administered. Responding appropriately to questions. Is being somewhat hostile to hospital staff and will not let them draw blood or put in an IV. HEENT: PERRLA Cardio: RRR. No rubs, murmurs or gallops Lungs: Lungs clear to auscultation BL. MSK: UE and LE strength and sensation intact Neuro: CN II - XII intact. Results & Data Results & Data ([facility]) Vital Signs (Past 12 Hours) Vital Signs Pulse Pulse Resp BP BP Pulse Ox Pulse Ox 04/27/21 03:10 56 L 20 121/82 94 04/27/21 01:00 70 17 151/82 H 99 04/27/21 00:50 62 13 98 04/27/21 00:40 16 99 04/27/21 00:30 20 98 04/27/21 00:20 18 135/89 96 04/27/21 00:10 20 96 04/27/21 00:00 68 17 120/73 94 04/26/21 23:50 58 L 16 94 04/26/21 23:40 62 20 97 04/26/21 23:30 60 13 137/83 95 04/26/21 23:20 65 12 97 04/26/21 23:10 63 23 119/77 97 04/26/21 23:00 20 96 04/26/21 22:50 18 97 04/26/21 22:40 20 97 04/26/21 22:30 17 130/79 98 04/26/21 22:20 20 98 04/26/21 22:10 21 98 04/26/21 22:00 18 112/66 98 04/26/21 21:50 20 117/66 100 04/26/21 21:40 20 136/75 98 04/26/21 21:30 70 15 97 04/26/21 21:20 79 19 98 04/26/21 21:10 82 17 98 04/26/21 21:00 78 19 94 04/26/21 20:50 72 21 94 04/26/21 20:40 79 19 97 04/26/21 20:30 82 18 99 04/26/21 20:26 76 18 158/89 H 98 04/26/21 20:23 97 04/26/21 20:03 82 98 04/26/21 19:51 99 04/26/21 19:41 86 140/93 97 Diagnostic Findings Laboratory Results WBC 4.41 K/uL (4.8-10.8) L 04/27/21 04:44 RBC 4.97 M/uL (4.7-6.1) 04/27/21 04:44 Hgb 15.6 g/dL (14.0-18.0) 04/27/21 04:44 Hct 46.6 % (42-52) 04/27/21 04:44 MCV 93.8 fL (80-100) 04/27/21 04:44 MCH 31.4 pg (25-34) 04/27/21 04:44 MCHC 33.5 g/dL (32-36) 04/27/21 04:44 RDW Std Deviation 41.8 fL (36.4-46.3) 04/27/21 04:44 RDW Coeff of Kaushik 12.2 % (11.5-14.5) 04/27/21 04:44 Plt Count 213 K/uL (130-400) 04/27/21 04:44 MPV 10.4 fL (7.4-10.4) 04/27/21 04:44 Immature Gran % (Auto) 0.0 % 04/27/21 04:44 Neut % (Auto) 52.5 % 04/27/21 04:44 Lymph % (Auto) 39.7 % 04/27/21 04:44 Meagher % (Auto) 6.6 % 04/27/21 04:44 Eos % (Auto) 0.7 % 04/27/21 04:44 Baso % (Auto) 0.5 % 04/27/21 04:44 Neut # (Auto) 2.32 K/uL (1.4-6.5) 04/27/21 04:44 Lymph # (Auto) 1.75 K/uL (1.2-3.4) 04/27/21 04:44 Meagher # (Auto) 0.29 K/uL (0.11-0.59) 04/27/21 04:44 Eos # (Auto) 0.03 K/uL (0-0.5) 04/27/21 04:44 Baso # (Auto) 0.02 K/uL (0-0.2) 04/27/21 04:44 Immature Gran # (Auto) 0.00 K/uL (0.00-0.02) 04/27/21 04:44 Sodium 140 mmol/L (136-145) 04/27/21 04:44 Potassium 3.8 mmol/L (3.5-5.1) 04/27/21 04:44 Chloride 107 mmol/L (98-107) 04/27/21 04:44 Carbon Dioxide 28 mmol/L (21-32) 04/27/21 04:44 Anion Gap 5.0 (3-11) 04/27/21 04:44 BUN 9 mg/dl (7-18) D 04/27/21 04:44 Creatinine 1.15 mg/dl (0.6-1.4) 04/27/21 04:44 Est Cr Clr Drug Dosing 118.1 ml/min 04/27/21 04:44 Est GFR ( Amer) 96.4 ml/min 04/27/21 04:44 Est GFR (Non-Af Amer) 83.2 ml/min 04/27/21 04:44 BUN/Creatinine Ratio 8.2 (10-20) L 04/27/21 04:44 Glucose 73 mg/dl (70-99) 04/27/21 04:44 Calcium 9.0 mg/dl (8.5-10.1) 04/27/21 04:44 Phosphorus 2.7 mg/dl (2.5-4.9) 04/27/21 04:44 Magnesium 2.1 mg/dl (1.8-2.4) 04/27/21 04:44 Total Bilirubin 0.4 mg/dl (0.2-1) 04/26/21 16:30 AST 18 U/L (15-37) 04/26/21 16:30 ALT 24 (12-78) 04/26/21 16:30 Alkaline Phosphatase 75 U/L (45-117) 04/26/21 16:30 Total Creatine Kinase 281 U/L (39-308) 04/26/21 16:30 Troponin I < 0.015 ng/ml (0-0.045) 04/26/21 16:30 Total Protein 8.4 gm/dl (6.4-8.2) H 04/26/21 16:30 Albumin 4.1 gm/dl (3.4-5.0) 04/26/21 16:30 Globulin 4.3 gm/dl (2.5-4.0) H 04/26/21 16:30 Albumin/Globulin Ratio 1.0 (0.9-2) 04/26/21 16:30 Urine Color Yellow 04/26/21 18:55 Urine Appearance Clear (Clear) 04/26/21 18:55 Urine pH 7.0 (4.5-7.5) 04/26/21 18:55 Ur Specific [place] 1.026 (1.000-1.030) 04/26/21 18:55 Urine Protein Negative (Negative) 04/26/21 18:55 Urine Glucose (UA) Negative (Negative) 04/26/21 18:55 Urine Ketones Trace (Negative) H 04/26/21 18:55 Urine Blood Negative (Negative) 04/26/21 18:55 Urine Nitrite Negative (Negative) 04/26/21 18:55 Urine Bilirubin Negative (Negative) 04/26/21 18:55 Urine Urobilinogen Negative (Negative) 04/26/21 18:55 Ur Leukocyte Esterase Negative (Negative) 04/26/21 18:55 Urine Opiates Screen Neg (Neg) 04/26/21 18:55 Ur Methadone, Qual Neg (Neg) 04/26/21 18:55 Urine Barbiturates Neg (Neg) 04/26/21 18:55 Phenytoin < 0.4 mcg/ml (10-20) L 04/26/21 16:30 Ur Phencyclidine (PCP) Neg (Neg) 04/26/21 18:55 U Amphetamin/Meth Scrn Neg (Neg) 04/26/21 18:55 MDMA (Ecstasy) Screen Neg (Neg) 04/26/21 18:55 U Benzodiazepines Scrn Neg (Neg) 04/26/21 18:55 Ur Cocaine Metabolite Neg (Neg) 04/26/21 18:55 U Marijuana (THC) Screen Neg (Neg) 04/26/21 18:55 SARS-CoV-2, RNA, NAAT NEGATIVE (NEGATIVE) 04/26/21 17:[address] 04/26/21 16:18 CT head/brain wo con CLINICAL HISTORY: SZ Technique: Contiguous axial CT images of the head were acquired from the base of the skull to the vertex without intravenous contrast administration. Images were viewed in brain, subdural and bone windows. Automated dose lowering techniques and/or adjustment according to patient size were utilized for this exam. Comparison: None available at the time of this dictation. Findings: The ventricles, basal cisterns, and cerebral sulci are normal. There is no acute intracranial hemorrhage or evidence of acute territorial infarction. Neither mass effect, shift of the midline structures, nor abnormal extra-axial fluid collections are shown. Imaged portions of the paranasal sinuses and mastoid air cells are clear. The orbits appear normal. There are no acute fractures of the calvaria or scalp swelling. Impression: No acute intracranial hemorrhage, no evidence of acute territorial infarction or other acute intracranial disease process. ACT 112: Negative or not required by law. Electronically signed by: Chava Johnson M.D. 04/26/2021 6:00 PM Chest X-Ray 04/26/21 20:13 XR chest 1V portable CLINICAL HISTORY: concern for aspiration TECHNIQUE: Single frontal radiograph of the chest was obtained. Comparison: Comparison is made to chest one view 04/26/2021 at 1622 hours FINDINGS: Exam is limited by underpenetration. The cardiomediastinal silhouette is normal. No airspace opacity is seen. No evidence of pleural effusion or pneumothorax. IMPRESSION: No new airspace opacity is seen to suggest aspiration. ACT 112: Negative or not required by law. Electronically signed by: Chava Johnson M.D. 04/26/2021 8:49 PM Medications Administered Current Inpatient Medications Acetaminophen (Acetaminophen 325 Mg Tab) 650 mg PO Q4H PRN PRN Reason: Pain or Fever Stop: 05/26/21 23:13 Amlodipine Besylate (Amlodipine Besylate 5 Mg Tab) 10 mg PO DAILY VALORIE Stop: 05/27/21 08:59 Last Admin: 04/27/21 08:35 Dose: Not Given Documented by: Aripiprazole (Aripiprazole 15 Mg Tab) 15 mg PO DAILY VALORIE Stop: 05/27/21 08:59 Last Admin: 04/27/21 08:35 Dose: Not Given Documented by: Hydroxyzine HCl (Hydroxyzine Hcl 25 Mg Tab) 100 mg PO HS VALORIE Stop: 05/27/21 20:59 Lorazepam (Ativan) 1 mg in 2 mls @ 2 mls/min IV Q5M PRN PRN Reason: seizure Stop: 05/26/21 20:44 Sodium Chloride (Nss 1000ml) 1,000 mls @ 125 mls/hr IV .Q8H VALORIE Stop: 04/27/21 15:13 Last Infusion: 04/27/21 10:33 Dose: Infused Documented by: Levalbuterol HCl (Levalbuterol Tartrate 15 Gm Hfa.Aer.Ad) 2 puffs INH QID PRN PRN Reason: Shortness Of Breath Or Wheezing Stop: 05/26/21 23:13 Levetiracetam (Levetiracetam 250 Mg Tab) 750 mg PO BID VALORIE Stop: 05/26/21 23:13 Last Admin: 04/27/21 08:08 Dose: 750 mg Documented by: Phenytoin Sodium (Phenytoin Sodium Er 100 Mg Cap) 200 mg PO BID VALORIE Stop: 05/26/21 23:13 Last Admin: 04/27/21 08:09 Dose: 200 mg Documented by: Polyethylene Glycol (Polyethylene (Miralax) 17 Gm Pack) 17 gm PO DAILY PRN PRN Reason: Constipation Stop: 05/26/21 23:13 Topiramate (Topiramate 50 Mg Tab) 50 mg PO HS VALORIE Stop: 05/27/21 20:59
--- NOTE | 2021-04-27 08:28 | Neurology Consultation ---
Date of Consultation April 27, 2021 Assessment & Plan (1) Intractable seizure disorder: Longstanding history of seizure disorder, refractory to treatment although medication noncompliance has been an issue recently. Limited records available from [facility] suggest this patient was considered an appropriate candidate for VNS placement earlier this year. Unfortunately, other records pertaining to previous evaluations including EEG monitoring, brain MRI, and previous neurology/epileptology assessments are not available. His recent CT of the head is normal as is his neurological examination. No supportive evidence of [employer] hemorrhage, stroke, meningoencephalitis, or toxic/metabolic encephalopathy. I have recommended some additional testing at this point in time including gadolinium enhanced MRI of the brain, seizure protocol, as well as a routine EEG. Further, as patient is currently able to take oral medication, will continue with his outpatient anticonvulsant regimen including levetiracetam 750 mg p.o. twice daily, phenytoin 200 mg twice daily, and topiramate 50 mg at bedtime. The phenytoin and levetiracetam dosages are reasonable and would likely result in therapeutic levels. The topiramate dosage is small but may remain at this level for the time being. Without access to prior medical records, it is difficult to make recommendations for alternative anticonvulsant trials at this point in time. Patient may need to have an additional consultation with his neurologist at [facility], Dr. Segun Reid and the [facility] neurosurgery department regarding VNS placement. If this patient were to have additional seizure episodes would consider transfer to [facility] for continuous video EEG monitoring. History of Present Illness Reason for Consultation: Seizure disorder Requesting Physician: Mak Ritter Attending Physician: Andreas Dale DO History of Present Illness The patient is a 35-year-old male prisoner who presented to the emergency department yesterday afternoon for further evaluation and management of multiple seizures. The patient has a history of epilepsy. He indicates that he began experiencing seizures as a teenager. He relays a history of multiple head injuries but also indicates that he has several children that have seizures as well. He indicates that he has been evaluated by multiple specialist for his seizures and complains of frequent medication adjustments to address refractory or breakthrough seizures. He expresses some distrust in his medical management and indicates that he has been noncompliant with his anticonvulsant regimen. Current records indicate that he is prescribed phenytoin, levetiracetam, and topiramate. He did have a neurosurgical consultation at [facility] earlier this year for consideration of possible vagal nerve stimulator implantation. These records were reviewed. It looks like there were tentative plans to proceed with VNS implantation and the patient did sign a preliminary consent for this procedure. No other records were available such as imaging or EEG reports, however. The patient does recall having EEG monitoring in the past. It looks like he had been referred to the neurosurgery service by a Dr. Alden Ayala, a neurologist affiliated with [facility] in [facility]. The patient does report experiencing some warning signs prior to his seizures which he characterizes as a generalized tensing or squeezing of his musculature. He has reportedly had generalized tonic-clonic seizures. His seizures have been poorly controlled with frequent episodes of breakthrough or recurrent events. He reportedly had approximately 6 seizures prior to arrival in the emergency department yesterday afternoon. He was treated with intramuscular lorazepam. He began to have witnessed convulsive activity while in the emergency department and he was given additional anticonvulsants including intravenous levetiracetam and fosphenytoin, abd valproic acid. Consideration for intubation was made although patient's clinical status improved. He is currently alert and has been able to take p.o. medications. His outpatient anticonvulsant regimen has been continued including phenytoin 200 mg twice daily, levetiracetam 750 mg twice daily, and topiramate 50 mg at bedtime. He did have a CT of the head completed yesterday that was negative for hemorrhage or acute process. No hydrocephalus. No parenchymal abnormality. Allergies Allergy/AdvReac Type Severity Reaction Status Date / Time brown Allergy Unknown Verified 04/26/21 17:35 Penicillins Allergy Unknown Verified 04/26/21 17:35 ONIONS Allergy Unknown Uncoded 04/26/21 17:35 Home Medications Medication Instructions Recorded Confirmed Type amlodipine 10 mg tablet 10 mg PO DAILY 04/26/21 04/26/21 History aripiprazole 15 mg tablet 15 mg PO DAILY 04/26/21 04/26/21 History hydroxyzine HCl 50 mg tablet 100 mg PO HS 04/26/21 04/26/21 History levalbuterol tartrate 45 2 inh INHALATION QID PRN 04/26/21 04/26/21 History mcg/actuation aerosol inhaler (Xopenex HFA) levetiracetam 750 mg tablet 750 mg PO BID 04/26/21 04/26/21 History phenytoin sodium extended 100 mg 200 mg PO BID 04/26/21 04/26/21 History capsule (Dilantin Extended) topiramate 50 mg tablet 50 mg PO HS 04/26/21 04/26/21 History trazodone 150 mg tablet 150 mg PO HS 04/26/21 04/26/21 History Patient History Medical History Asthma Hypertension Seizures Social History Smoking Status: Former smoker Tobacco Type: Cigarettes Hx Alcohol Use: No Hx Substance Use: No Feels Safe at Home: Yes Review of Systems Constitutional: no fever and no chills Eyes: no blind spots and no diplopia Ear, Nose, Mouth, Throat: no ear pain and no hearing loss Respiratory: no cough and no dyspnea Cardiovascular: no chest pain and no palpitations Gastrointestinal: no constipation and no diarrhea/loose stools Genitourinary: no urinary incontinence or no urinary urgency Musculoskeletal: no muscle weakness and no muscle atrophy Integumentary: no rash and no lesions Neurologic: as per Subjective / HPI Psychiatric: no behavioral changes, no depression, no abnormal sleep pattern and no anxiety Hematologic / Lymphatic: no easy bruising and no lymphadenopathy Exam (Neuro) Constitutional: well developed and well nourished; no acute distress Eyes: normal visual dyson by confrontation, PERRL, normal accommodation and EOM intact bilaterally; no fundoscopic abnormality, no nystagmus and no papilledema Cardiovascular: Vessels: normal carotid upstroke; no carotid bruit Neurologic: Oriented to:: Person, Place and Time Memory: Short Term Intact and Remote Intact Attention: Span Intact and Concentration Intact Language: Naming Objects and Repeating Phrases Speech Fluency: negative Dysarthria Speech Aphasia: negative Aphasia Fund of Knowledge: Current Events, Past History and Vocabulary Cranial Nerves: Normal II (Visual dyson full to confrontation, visual acuity normal), III, IV, (Pupils equal round reactive to light and accommodation, eye movements normal), V (Facial sensation intact), VII (There is no facial droop or weakness), VIII (Hearing intact), IX, X (Palate elevates to midline), XI (Shoulder shrug intact) and XII (Tongue protrudes to midline) Motor Strength: Normal Lower Extremities and Normal Upper Extremities; negative Pronator Drift Motor Tone: Normal Lower Extremities and Normal Upper Extremities Muscle Bulk/Involuntary Movements: N o Involuntary Movements; negative Muscle Atrophy Sensation: Light Touch Intact, Pain/Temperature Intact, Vibration Intact and Proprioception Intact Coordination: Normal; negative Limited Balance, Dysdiadochokinesia, Finger-Nose Abnormal or Heel-Richardson Abnormal Deep Tendon Reflexes: Rt Triceps: 2+, Lt Triceps: 2+, Rt Biceps: 2+, Lt Biceps: 2+, Rt Brachioradialis: 2+, Lt Brachioradialis: 2+, Rt Patellar: 2+, Lt Patellar: 2+, Rt Ankle: 2+ and Lt Ankle: 2+ Special Tests: negative Babinski Present Details: Gait could not be tested in the context of patient's current neurological status. Results & Data ([facility]) Vital Signs (Past 12 Hours) Vital Signs Pulse Pulse Resp BP BP Pulse Ox Pulse Ox 04/27/21 08:06 75 18 139/75 98 04/27/21 03:10 56 L 20 121/82 94 04/27/21 01:00 70 17 151/82 H 99 04/27/21 00:50 62 13 98 04/27/21 00:40 16 99 04/27/21 00:30 20 98 04/27/21 00:20 18 135/89 96 04/27/21 00:10 20 96 04/27/21 00:00 68 17 120/73 94 04/26/21 23:50 58 L 16 94 04/26/21 23:40 62 20 97 04/26/21 23:30 60 13 137/83 95 04/26/21 23:20 65 12 97 04/26/21 23:10 63 23 119/77 97 04/26/21 23:00 20 96 04/26/21 22:50 18 97 04/26/21 22:40 20 97 04/26/21 22:30 17 130/79 98 04/26/21 22:20 20 98 04/26/21 22:10 21 98 04/26/21 22:00 18 112/66 98 04/26/21 21:50 20 117/66 100 04/26/21 21:40 20 136/75 98 04/26/21 21:30 70 15 97 04/26/21 21:20 79 19 98 04/26/21 21:10 82 17 98 04/26/21 21:00 78 19 94 04/26/21 20:50 72 21 94 04/26/21 20:40 79 19 97 04/26/21 20:30 82 18 99 04/26/21 20:26 76 18 158/89 H 98 Laboratory Results WBC 4.41, hemoglobin 15.6, hematocrit 46.6, platelet count 213, sodium 140, potassium 3.8, BUN 9, creatinine 1.15, glucose 73, magnesium 2.1, AST 18, ALT 24, total CK 281, troponin less than 0.015, phenytoin level less than 0.4. Diagnostic Findings CT of the head negative for hemorrhage or acute process. No hydrocephalus. No parenchymal abnormality. I reviewed the images as well as the radiologist's interpretation of this test. Coding Level of Care Code 24418 Initial In Care Lvl 3 Diagnoses Intractable seizure disorder G40.919
[2021-04-27] MEDS ORDERED: ARIPiprazole 15 MG TAB PO SCH (09:00)
[2021-04-27] MEDS ORDERED: amLODIPine BESYLATE 5 MG TAB PO SCH (09:00)
--- NOTE | 2021-04-27 09:59 | Electroencephalogram ---
EEG Procedure Note Date of Service April 27, 2021 Start / End Times Start Time: 9:32 AM End Time: 9:52 AM Referring Physician Dino Mcclure MD History Seizure disorder, multiple seizures, medication noncompliance, reported history of TBI Home Medication List Medication Instructions Recorded Confirmed Type amlodipine 10 mg tablet 10 mg PO DAILY 04/26/21 04/26/21 History aripiprazole 15 mg tablet 15 mg PO DAILY 04/26/21 04/26/21 History hydroxyzine HCl 50 mg tablet 100 mg PO HS 04/26/21 04/26/21 History levalbuterol tartrate 45 2 inh INHALATION QID PRN 04/26/21 04/26/21 History mcg/actuation aerosol inhaler (Xopenex HFA) levetiracetam 750 mg tablet 750 mg PO BID 04/26/21 04/26/21 History phenytoin sodium extended 100 mg 200 mg PO BID 04/26/21 04/26/21 History capsule (Dilantin Extended) topiramate 50 mg tablet 50 mg PO HS 04/26/21 04/26/21 History trazodone 150 mg tablet 150 mg PO HS 04/26/21 04/26/21 History Inpatient Medication List Amlodipine Besylate (Amlodipine Besylate 5 Mg Tab) 10 mg PO DAILY VALORIE Stop: 05/27/21 08:59 Last Admin: 04/27/21 08:35 Dose: Not Given Documented by: [id number] Aripiprazole (Aripiprazole 15 Mg Tab) 15 mg PO DAILY VALORIE Stop: 05/27/21 08:59 Last Admin: 04/27/21 08:35 Dose: Not Given Documented by: [id number] Sodium Chloride (Nss 1000ml) 1,000 mls @ 125 mls/hr IV .Q8H VALORIE Stop: 04/27/21 15:13 Last Admin: 04/27/21 00:36 Dose: 125 mls/hr Documented by: [id number] Levetiracetam (Levetiracetam 250 Mg Tab) 750 mg PO BID VALORIE Stop: 05/26/21 23:13 Last Admin: 04/27/21 08:08 Dose: 750 mg Documented by: [id number] Admin: 04/27/21 00:35 Dose: 750 mg Documented by: [id number] Phenytoin Sodium (Phenytoin Sodium Er 100 Mg Cap) 200 mg PO BID VALORIE Stop: 05/26/21 23:13 Last Admin: 04/27/21 08:09 Dose: 200 mg Documented by: [id number] Admin: 04/27/21 00:35 Dose: 200 mg Documented by: [id number] Discontinued Medications Sodium Chloride (Nss 1000ml) 1,000 mls @ 999 mls/hr IV .Q1H1M VALORIE Stop: 04/26/21 17:30 Last Infusion: 04/26/21 19:44 Dose: 999 mls/hr Documented by: [id number] Admin: 04/26/21 17:06 Dose: 999 mls/hr Documented by: [id number] Levetiracetam 2,000 mg/ Sodium (Chloride) 100 mls @ 440 mls/hr IV NOW STA Stop: 04/26/21 16:31 Last Infusion: 04/26/21 17:05 Dose: 0 mls/hr Documented by: [id number] Admin: 04/26/21 16:50 Dose: 440 mls/hr Documented by: [id number] Lorazepam (Ativan) 1 mg in 2 mls @ 2 mls/min IV NOW STA Stop: 04/26/21 16:57 Last Admin: 04/26/21 17:08 Dose: 2 mls/min Documented by: [id number] Fosphenytoin Sodium 2,000 mgpe (/ Sodium Chloride) 90 mls @ 420 mls/hr IV NOW STA Stop: 04/26/21 17:06 Last Infusion: 04/26/21 17:31 Dose: 0 mls/hr Documented by: [id number] Admin: 04/26/21 17:18 Dose: 420 mls/hr Documented by: [id number] Valproic Acid 2,000 mg/ (Dextrose) 120 mls @ 120 mls/hr IV ONE ONE Stop: 04/26/21 17:27 Last Infusion: 04/26/21 19:44 Dose: 120 mls/hr Documented by: [id number] Admin: 04/26/21 17:36 Dose: 120 mls/hr Documented by: [id number] Aztreonam 2,000 mg/ Dextrose 110 mls @ 100 mls/hr IV Q8H [facility]; Protocol Stop: 05/04/21 00:59 Last Infusion: 04/27/21 05:22 Dose: 0 mls/hr Documented by: [id number] Admin: 04/27/21 02:57 Dose: 100 mls/hr Documented by: [id number] Vancomycin HCl 2,250 mg/ (Sodium Chloride) 545 mls @ 200 mls/hr IV 2330 ONE Stop: 04/27/21 02:13 Last Admin: 04/27/21 00:36 Dose: 200 mls/hr Documented by: [id number] Lorazepam (Lorazepam 2 Mg/Ml Vial (Im Use)) Confirm Administered Dose 2 mg .ROUTE .STK-MED ONE Stop: 04/26/21 16:53 Last Admin: 04/26/21 16:56 Dose: 1 mg Documented by: [id number] Lorazepam (Lorazepam 2 Mg/Ml Vial (Im Use)) Confirm Administered Dose 2 mg .ROUTE .STK-MED ONE Stop: 04/26/21 17:03 Last Admin: 04/26/21 17:08 Dose: Not Given Documented by: [id number] Miscellaneous (Rapid Sequence Induction Bag) Confirm Administered Dose 1 ea .ROUTE .STK-MED ONE Stop: 04/26/21 17:13 Last Admin: 04/26/21 18:13 Dose: Not Given Documented by: [id number] Description This is a 21 electrode EEG with a single channel dedicated to limited EKG. The electrodes were placed in accordance with the International 10-20 system. There is a posterior dominant rhythm of 12 Hz which is symmetrically distributed and attenuates with eye opening. There is a normal anterior to posterior organization. Photic stimulation is unremarkable. Hyperventilation was not performed. There is a symmetric frontal beta rhythm. There is an excessive amount of chewing and movement artifact throughout the study which obscures interpretation. There is no focal slowing. There are no epileptiform abnormalities. Interpretation Technically limited awake/drowsy EEG. Normal-appearing background rhythm. No epileptiform abnormalities. Further clinical correlation may be needed. [facility] EEG Procedure Codes Indication for Procedure (1) Intractable seizure disorder: Neurology Neurology: 30903 EEG include record awake & drowsy
[2021-04-27] MEDS ORDERED: VANCOMYCIN HCL 1,250 MG in SODIUM CHLORIDE 0.9% 250 ML IV SCH (12:00)
--- NOTE | 2021-04-27 14:01 | Discharge Summary ---
Date of Service April 27, 2021 Admission HPI Per Admitting Provider Marquis Lam is here for a seizure. He has a past medical history of asthma, HTN, and seizures presents after a seizure and receiving 2 X 1 mg of Ativan at the correctional facility prior to arrival. He had not been taking his AED's since he had a medication change. He was sedated initially and only able to answer a few questions prior to going back to sleep while I talked with him. ED course: Lorazepam 1 mg, Fospehnytoin, Keppra, fluids Admission Exam Per Admitting Provider Constitutional: well developed and well nourished Eyes: no EOM movement deficit - equally reactive pupils ENMT: external ear and nose normal, oropharynx normal Neck: normal visual inspection Respiratory: normal respiratory effort, lungs clear to auscultation Cardiovascular: RRR, no murmur, no edema Skin: no rashes, warm and dry Neurologic: CN's II-XI intact bilaterally; no focal motor deficits and not confused Speech / Cognition: normal speech Psychiatric: Orientation: cooperative Principal Diagnosis Seizure Epilepsy Discharge Exam General: Well-appearing 35-year-old male in no acute distress. HEENT: Mucous membranes are moist. No JVD. Cardiac: Normal rate, regular rhythm, S1 and S2 present without murmurs rubs or gallops. Pulmonary: Normal respiratory effort with symmetric expansion of the chest. Lungs are clear to auscultation bilaterally without crackles or wheezes. Abdominal: Abdomen is soft, nontender, and nondistended to palpation. Neurologic: Cranial nerves II through XII grossly intact. Upper and lower motor extremity strength is 5 out of 5 bilaterally. Sensation to light touch is grossly intact. Discharge Data Allergies Allergy/AdvReac Type Severity Reaction Status Date / Time brown Allergy Unknown Verified 04/26/21 17:35 Penicillins Allergy Unknown Verified 04/26/21 17:35 ONIONS Allergy Unknown Uncoded 04/26/21 17:35 Consultations 04/26/21 18:32 ED Decision to Admit Stat 04/27/21 00:32 Consult Neurology Routine (excerpt from Dr. Mcclure of [facility] Neurology) "Longstanding history of seizure disorder, refractory to treatment although medication noncompliance has been an issue recently. Limited records available from [facility] suggest this patient was considered an appropriate candidate for VNS placement earlier this year. Unfortunately, other records pertaining to previous evaluations including EEG monitoring, brain MRI, and previous neurology/epileptology assessments are not available. His recent CT of the head is normal as is his neurological examination. No supportive evidence of PC ANALYST hemorrhage, stroke, meningoencephalitis, or toxic/metabolic ence phalopathy. I have recommended some additional testing at this point in time including gadolinium enhanced MRI of the brain, seizure protocol, as well as a routine EEG. Further, as patient is currently able to take oral medication, will continue with his outpatient anticonvulsant regimen including levetiracetam 750 mg p.o. twice daily, phenytoin 200 mg twice daily, and topiramate 50 mg at bedtime. The phenytoin and levetiracetam dosages are reasonable and would likely result in therapeutic levels. The topiramate dosage is small but may remain at this level for the time being. Without access to prior medical records, it is difficult to make recommendations for alternative anticonvulsant trials at this point in time. Patient may need to have an additional consultation with his neurologist at [facility], Dr. Segun Reid and the [facility] neurosurgery department regarding VNS placement. If this patient were to have additional seizure episodes would consider transfer to [facility] for continuous video EEG monitoring." MRI cancelled due to aron in leg. Ordered Studies 04/26/21 16:18 CT head/brain wo con Stat Impression: No acute intracranial hemorrhage, no evidence of acute territorial infarction or other acute intracranial disease process. EEG (04/27/21) Interpretation Technically limited awake/drowsy EEG. Normal-appearing background rhythm. No epileptiform abnormalities. Further clinical correlation may be needed. Hospital Course (1) Intractable seizure disorder: This is a 35-year-old gentleman with a notable history of epilepsy with reported break through seizures, asthma, and hypertension who presented to [facility] following multiple grand mal seizures at his correctional facility. Of note, is a previous patient of [facility] neurolog[facility], considered a candidate for VNS placement given history of breakthrough seizures. Patient reports not taking his antiepileptic drugs over 1 month and had multiple seizures day prior to admission. He endorses significant frustration regarding changes within his antiepileptic regimen, especially in the context of a regimen that previously worked for him (gabapentin, Keppra). CT-H was negative for intracranial pathology. Laboratories were unrevealing for metabolic or hematologic concerns. He was given Ativan, Fosphenytoin, Keppra, and fluids in the ED following witnessed seizure activity. Patient did not have seizures thereafter. He was seen by neurology the following morning, who performed an EEG, which was normal. Based on his history, the neurologist had recommended levetiracetam, phenytoin, and topiramate as his AEDs. However, after discussing and directly recommending these to the patient, he stated that the only way he would be compliant with his medications would be to return to "the regimen that previously worked" (referring to gabapentin/Keppra). We spent extensive time discussing roles of AEDs and the large variety of options now available -- including realistic expectations with regards to finding a fair trade-off between side effects and seizure control. However, he was adamant about only taking Keppra and gabapentin. With this being said, patient will be discharged on gabapentin and levetiracetam -- as he claims these worked for him in the past, and he refuses to take anything else than these two at this time. Please note the following medication plan: -- START gabapentin 100mg, three times daily, upon discharge and titrate upwards to goal of 300mg t.i.d. (or more); this is the last reported dose in the [facility] system -- CONTINUE levetiracetam, 750mg twice daily; can consider increasing to 1000mg twice daily, as patient reports this was his previously effective dose. -- Recommend continuing TopaMax -- STOP phenytoin -- patient is refusing to take We do recommend very close follow-up with [facility] neurosurgery for evaluation of VNS placement, to which patient has previously consented. While considered an e lective procedure, the risks of frequent and continued grand mal seizures expose the patient to significant harm that could likely be aided by VNS placement. [facility] does not have the capabilities to place these devices. Warm handoff provided to on-call physician at the correctional facility. He is deemed stable for discharge after his work-up and is safe to return back to his correctional facility for ongoing care. We will message [place] neurology to ensure close follow-up. (2) Noncompliance with medication regimen: (3) Asthma: (4) Hypertension: (5) Seizures: Total Time Total Time Spent Total Time Spent (In Minutes): <30 Discharge Plan Discharge Items Patient Disposition: [facility] Facility Reason For Visit: SEIZURE Discharge Diagnosis: seizure epilepsy Activity: Per Instructions section Non-emergency contact: Primary Care Provider and Neurologist Call non-emergency contact if: you have any medication questions, your symptoms worsen, you have a fever and your temperature is above 101 Follow-up/Referrals: Barbara PEÑALOZA [Primary Care Provider] - Diet: Regular Addtl Attending Provider Instructions: This is a 35-year-old gentleman with a notable history of epilepsy with reported break through seizures, asthma, and hypertension who presented to [facility] following multiple grand mal seizures at his correctional facility. Of note, is a previous patient of [facility] neurolog[facility], considered a candidate for VNS placement given history of breakthrough seizures. Patient reports not taking his antiepileptic drugs over 1 month and had multiple seizures day prior to admission. He endorses significant frustration regarding changes within his antiepileptic regimen, especially in the context of a regimen that previously worked for him (gabapentin, Keppra). CT-H was negative for intracranial pathology. Laboratories were unrevealing for metabolic or hematologic concerns. He was given Ativan, Fosphenytoin, Keppra, and fluids in the ED following witnessed seizure activity. Patient did not have seizures thereafter. He was seen by neurology the following morning, who performed an EEG, which was normal. Based on his history, the neurologist had recommended levetiracetam, phenytoin, and topiramate as his AEDs. However, after discussing and directly recommending these to the patient, he stated that the only way he would be compliant with his medications would be to return to "the regimen that previously worked" (referring to gabapentin/Keppra). We spent extensive time discussing roles of AEDs and the large variety of options now available -- including realistic expectations with regards to finding a fair trade-off between side effects and seizure control. However, he was adamant about only taking Keppra and gabapentin. With this being said, patient will be discharged on gabapentin and levetiracetam -- as he claims these worked for him in the past, and he refuses to take anything else than these two at this time. Please note the following medication plan: -- START gabapentin 100mg, three times daily, upon discharge and titrate upwards to goal of 300mg t.i.d. (or more); this is the last reported dose in the [facility] -- CONTINUE levetiracetam, 750mg twice daily; can consider increasing to 1000mg twice daily, as patient reports this was his previously effective dose. -- Recommend continuing TopaMax -- STOP phenytoin -- patient is refusing to take We do recommend very close follow-up with [facility] neurosurgery for evaluation of VNS placement, to which patient has previously consented. While considered an elective procedure, the risks of frequent and continued grand mal seizures expos e the patient to significant harm that could likely be aided by VNS placement. [facility] does not have the capabilities to place these devices. Warm handoff provided to on-call physician at the correctional facility. He is deemed stable for discharge after his work-up and is safe to return back to his correctional facility for ongoing care. We will message [place] neurology to ensure close follow-up. Pending Studies at Discharge: No Stand-Alone Forms: My [facility] Skilled Items Patient informed of condition?: Yes Discharge Level of Care: Other Communicable Disease: No Discharge Prognosis: Stable Lines: None Urinary Catheter: No Medications and DC Order Prescriptions: New gabapentin 100 mg capsule 100 mg PO TID 30 Days Qty: 90 RF: 0 Continued trazodone 150 mg Tablet 150 mg PO HS RF: 0 topiramate 50 mg Tablet 50 mg PO HS RF: 0 levalbuterol tartrate [Xopenex HFA] 45 mcg/actuation Hfa Aerosol Inhaler 2 inh INHALATION QID PRN (Reason: Shortness Of Breath Or Wheezing) RF: 0 hydroxyzine HCl 50 mg Tablet 100 mg PO HS RF: 0 amlodipine 10 mg Tablet 10 mg PO DAILY RF: 0 aripiprazole 15 mg Tablet 15 mg PO DAILY RF: 0 Changed levetiracetam 750 mg Tablet 1,000 mg PO BID 30 Days Qty: 0 RF: 0 Discontinued phenytoin sodium extended [Dilantin Extended] 100 mg Capsule 200 mg PO BID RF: 0 Discharge Orders: Discharge Order (Routine); Ordered 04/27/21 Ordered By: Andreas Juan Admission Data Admit Date/Time: 04/26/21 20:22 Attending Provider: Andreas Dale Admit Provider: Mak Ritter Primary Care Provider: Barbara PEÑALOZA Other Providers: Manuel Christianson ; Dino Mcclure Supervising Physician Co-Signing Physician Notes I personally examined the patient and verified all smith points of history and exam, discussed case, and agree with decision making with Dr Juan. Feeling exhausted, but no further seizures. Neurology input greatly appreciated. In discussion of plan, patient notes at first quite adamantly that he is not going to take medicines that he does not approve of, noting that he does not like the side effects. We have an extensive discussion of risks and benefitsstarting with the unfortunate reality that when someone has a fairly br ittle seizure disorder, as he appears to have, the "extremes" of choices pretty much amount to having completely uncontrolled seizures but not having any medicine side effects, or having seizures under control, but having sedation/mental slowing/etc. for medications. Discussed from there, that the goal would be to try to titrate medicines to the lowest dose as needed to control the seizures, and to try to minimize side effects. Further, given that he is apparently being evaluated for surgical nerve stimulator, this would likely be very helpful in allowing reduction in meds as well, which would also allow reduction in med side effects. After all of this discussion, he is more amenable to medicines, but really only Keppra and gabapentin. Vitals noted, in general he is awake and alert pleasant no distress. HEENT normocephalic atraumatic mucous membranes moist. Breathing unlabored no accessory muscle use good effort. Skin shows no rashes no pallor or icterus. Neuro without focal deficits. Seizure disorderuncontrolled, due to nonadherence. Patient quite particular about medicationssee discussion above, while I would have preferred to send patient with medications per neurology recommendations, patient was clear that he would absolutely refused to take them. To that end, Keppra and gabapentin will certainly have more of a suppressive effect than doing nothing, which was h is stated alternative. Therefore send him on that regimen. Trying to facilitate closer follow-up with [place], and hopefully he will be able to have nerve stimulator placed in the near future. Currently stable for discharge. otherwise as above Resident Activity Tracking Resident Involvement: Resident Care Provided Care Provided: [facility] Medicine
--- NOTE | 2021-04-27 19:32 | Billing Data ---
Date of Service April 27, 2021 Coding Level of Care Code D/C DAY MANAGEMENT <30 MINS
--- NOTE | 2021-04-27 19:48 | Billing Data ---
Date of Service April 27, 2021 Coding Level of Care Code 15807 Initial Inpt Care Lvl 3
[2021-04-27] MEDS ORDERED: TOPIRAMATE 50 MG TAB PO SCH (21:00)
[2021-04-27] MEDS ORDERED: hydrOXYzine HCl 25 MG TAB PO SCH (21:00)
--- NOTE | 2021-04-27 21:29 | Electrocardiogram Report ---
Test Reason : Blood Pressure : / mmHG Vent. Rate : 064 BPM Atrial Rate : 064 BPM P-R Int : 160 ms QRS Dur : 094 ms QT Int : 382 ms P-R-T Axes : 050 035 019 degrees QTc Int : 394 ms Normal sinus rhythm Normal ECG No previous ECGs available Confirmed by Buck Boss ([id number] on 04/27/2021 9:28:53 PM Referred By: Barbara PEÑALOZA Confirmed By:Buck Boss
[2021-04-30 14:31] LABS: Levetiracetam Keppra < 1.0 mcg/mL (12.0-46.0); Topiramate < 0.5 mcg/mL (see note)
== END 2021-04-27 15:30 | DRG 101 ==
LOC: ED 16:14 → EDINP 20:22 → SUATTDRO 20:22 → EDINP 23:15

== ENCOUNTER 2021-04-28 22:54 | Inpatient (IN) ==
[2021-04-28] MEDS ORDERED: SODIUM CHLORIDE 0.9% 1000ML 2,000 ML IV ONE (23:02)
[2021-04-28 23:51] LABS: Basophils # (auto) 0.02 K/uL (0-0.2); Basophils % (auto) 0.2 %; Eosinophils # (auto) 0.04 K/uL (0-0.5); Eosinophils % (auto) 0.4 %; Hematocrit (blood only) 45.7 % (42-52); Hemoglobin 14.7 g/dL (14.0-18.0); Lymphocytes # (auto) 3.14 K/uL (1.2-3.4); Lymphocytes % (auto) 31.2 %; Mean Corpuscular Hemoglobin 31.5 pg (25-34); Mean Corpuscular Hgb Conc 32.2 g/dL (32-36); Mean Corpuscular Volume 98.1 fL (80-100); Mean Platelet Volume 11.1 fL (7.4-10.4); Monocytes # (auto) 0.02 K/uL (0.11-0.59); Monocytes % (auto) 0.2 %; Neutrophils # (auto) 6.63 K/uL (1.4-6.5); Platelet Count 208 K/uL (130-400); RDW Coefficient of Variation 12.4 % (11.5-14.5); RDW Standard Deviation 44.7 fL (36.4-46.3); Red Blood Count 4.66 M/uL (4.7-6.1); White Blood Count 10.05 K/uL (4.8-10.8)
[2021-04-28 23:55] LABS: iSTAT Creatinine 1.8 mg/dl (0.6-1.3); iSTAT Hemoglobin 15.6 g/dl (14.0-18.0); iSTAT Ionized Calcium 1.15 mmol/l (1.12-1.32); iSTAT Potassium 4.4 mmol/L (3.3-5.0)
[2021-04-29] MEDS ORDERED: STAT IV Infusion **Titration per Protocol STA (00:03)
[2021-04-29 00:28] LABS: Aspartate Aminotransferase 1104 U/L (15-37); Magnesium 2.6 mg/dl (1.8-2.4); Potassium 4.5 mmol/L (3.5-5.1)
--- NOTE | 2021-04-29 00:30 | Emergency Department Note ---
Impression & Plan Suicide attempt by hanging, Cardiac arrest, Hypotension, Acute renal failure, Elevated lactic acid level, Elevated troponin ED Provider Note NAME: [id number] PALM AGE: 35 SEX: M ARRIVES VIA: Ambulance INFORMANT: Patient ED PROVIDER(S): Wilberto Flower MD CHIEF COMPLAINT: Suicide attempt. Cardiac arrest. PLAN: Disposition: Admit MEDICAL DECISION MAKING: The patient is a 35-year-old gentleman, current fdc inmate at [facility] who presents emerge department via EMS for cardiac arrest status post ROSC which occurs in the setting of suicide attempt by hanging. Per report the patient was observed during normal rounds at 2150 and upon reevaluation at 2200 was observed to be unresponsive having hung himself and CPR was initiated. Per report AED was placed and the patient did receive 2 shocks with ROSC however then had developed PEA and so CPR was continued with repeated rounds of epinephrine where ROSC was regained. The patient was intubated in the field by EMS without sedation and was receiving push dose epinephrine for blood pressure support given persistent hypotension. On arrival the patient is intubated with blood pressure 60s/40s heart rate in the 90s-100s without spontaneous respiration with manual ventilation. The patient had fixed and dilated pupils with absent corneal reflex. There was ligature bel across the anterior aspect of his neck without overt ecchymosis On arrival. There were no bruits appreciated. No crepitus of the neck or chest. Bilateral breath sounds were noted. ET tube was confirmed on chest x-ray and O2 saturation was normal. Central line was placed emergently given poor IV access and need for vasopressors. ICU team aware. Appreciate assistance from Edson Quinteros, ICU PAHelen. Hypothermic protocol deferred per ICU. Case was discussed with Dr. Christianson, [facility] hospitalist, who will evaluate the patient for admission. EKG demonstrates anterior lateral ST depressions, no overt ST elevation. WBC, H/H and platelets within normal limits. Chemistry without metabolic acidosis. Creatinine 2.2 increased from prior value. Lactic acid 9.2. LFTs acutely elevated with AST and ALT 1100. Troponin 0.067 in setting of cardiac arrest and CPR following hanging. Covid-19 RNA, NAAT was negative. CT of the head per preliminary stat rad report demonstrates near complete loss of abel-white matter differentiation consistent with suspected anoxic brain injury. CT of the cervical spine negative for fracture dislocation. Note is made of coiled NG tube and placement above the cords. This will be replaced by RN. CTA of the head and neck negative for acute vascular injury. The patient was admitted to the ICU for further management. Triage Nursing notes reviewed and agree them. Prior medical records reviewed Vital Signs: reviewed and remarkable for hypotension. Differential diagnosis: Infection, hypoglycemia, electrolyte abnormalities, overdose, toxicologic, cardiac sources, intracerebral event, neurologic, trauma, as well as other pathologies. ER treatment provided: See below. Diagnostics interpreted by me: ECG: Normal sinus rhythm, 90 bpm, no ectopy, anterior lateral ST depression, no overt ST elevation. Cardiac Monitoring: An order for continuous cardiac monitoring was placed and demonstrated normal sinus rhythm, 90 bpm, no ectopy. Laboratory studies: See below Imaging studies: See below Consultation(s): Edson Quinteros, ICU PAC with Dr. Dimas, ICU cv rn. Dr. Christianson, [facility] hospitalist, who will evaluate the patient for admission. HPI: The patient is a 35-year-old gentleman, current fdc inmate at [facility] who presents to the emergency department via EMS for cardiac arrest status post ROSC which occurs in the setting of suicide attempt by hanging. Per report the patient was observed during normal rounds at 2150 and upon reevaluation at 2200 was observed to be unresponsive having hung himself and CPR was initiated. Per report AED was placed and the patient did receive 2 shocks with ROSC however then had developed PEA and so CPR was continued with repeated rounds of epinephrine where ROSC was regained. The patient was intubated in the field by EMS without sedation and was receiving push dose epinephrine for blood pressure support given persistent hypotension. ROS: See above HPI for pertinent positives & negatives. A total of 10 systems reviewed and were otherwise negative. PAST MEDICAL HISTORY:See Below PAST SURGICAL HISTORY:See Below FAMILY HISTORY:See Below SOCIAL HISTORY:See Below HOME MEDICATIONS:See Below ALLERGIES:See Below VITALS:See Below PHYSICAL EXAMINATION: GENERAL: Unresponsive, intubated. HENT: Normocephalic, atraumatic. Oropharynx with ETT in place. EYES: Pupils fixed and dilated. Absent corneal reflex. NECK: Ligature bel across the anterior aspect of the neck. No overt ecchymosis at this time. No bruits. No crepitus. RESPIRATORY: Coarse breath sounds. Manual ventilation. No spontaneous breaths. CARDIAC: Femoral carotid pulses are weak. Extremities cool. ABDOMEN: nondistended. RECTAL: Deferred. LOWER EXTREMITIES: No edema. No discoloration. NEURO: GCS-3T, Pupils fixed and dilated. Absent corneal reflex. SKIN: Cool, dry.. ED COURSE: Procedures: Central Venous Catheter Indication: Hypotension / IV access Catheter type: Triple Lumen Location: Right femoral Emergent consent implied. At this time, the risks of the procedure are less than the risks of NOT performing the procedure. A time out was taken and the correct patient and site identified. The patient was placed in the supine position and the skin was prepped in the standard fashion with chlorhexidine and full sterile drapes applied. The proper landmarks were identified with ultrasound, anesthetized with 1% lidocaine without epinephrine, and the needle was inserted through the skin in the standard fashion. The needle was carefully advanced into blood vessel lumen under dynamic ultrasound guidance. The guidewire was placed uneventfully and confirmed on ultrasound. The vessel is dilated and the catheter was placed. It was sutured into position. There was good blood return from all ports. The patient tolerated the procedure well and there were no complications. Critical Care: I have personally spent greater than 75 minutes of critical care time in the direct management of this patient. This includes bedside care, interpretation of diagnostic studies, and testing, discussion with consultants, patient, and family members, and other required patient management activities. This 75 minutes is in excess of all separately billable procedures. Wilberto Flower MD Past Med/Surg History Medical History Asthma Hypertension Seizures Family History Other Family history non-contributory Social History Smoking Status: Former smoker Tobacco Type: Cigarettes Hx Alcohol Use: No Hx Substance Use: Yes Feels Safe at Home: Yes Assistive Devices: None Allergies Allergies Allergy/AdvReac Type Severity Reaction Status Date / Time brown Allergy Unknown Verified 04/28/21 23:11 Penicillins Allergy Unknown Verified 04/28/21 23:11 ONIONS Allergy Unknown Uncoded 04/28/21 23:11 Home Meds Home Medications Medication Instructions Recorded Confirmed amlodipine 10 mg tablet 10 mg PO DAILY 04/26/21 04/28/21 aripiprazole 15 mg tablet 15 mg PO DAILY 04/26/21 04/28/21 hydroxyzine HCl 50 mg tablet 100 mg PO HS 04/26/21 04/28/21 levalbuterol tartrate 45 2 inh INHALATION QID PRN 04/26/21 04/28/21 mcg/actuation aerosol inhaler (Xopenex HFA) topiramate 50 mg tablet 50 mg PO HS 04/26/21 04/28/21 trazodone 150 mg tablet 150 mg PO HS 04/26/21 04/28/21 levetiracetam 750 mg tablet 1,500 mg PO BID 04/28/21 04/28/21 Previous Rx's Medication Instructions Recorded gabapentin 100 mg capsule 100 mg PO TID 30 Days #90 cap 04/27/21 Results & Data (ED) Vital Signs Vital Signs - 24 hr 04/28/21 23:00 04/28/21 23:27 04/29/21 00:01 Temperature Temperature Source Pulse Rate 96 H 85 Pulse Rate [Right Finger] 108 H Respiratory Rate 20 20 12 Blood Pressure 88/55 L Blood Pressure [Right Arm] 83/52 L Blood Pressure Mean 66 Blood Pressure Mean [Right Arm] 62 Blood Pressure Position [Right Arm] Lying Pulse Oximetry 92 94 98 Oxygen Delivery Method Mechanical Vent Mechanical Vent Fraction of Inspired Oxygen 100 Sepsis Recent Fever Within 48 Hours No Sepsis New/Unexplained Change in Mental Status No Sepsis Action Taken by Nursing No Action Required End-Tidal CO2 54 04/29/21 00:20 Temperature 36.9 C Temperature Source Temporal Artery Scan Pulse Rate Pulse Rate [Right Finger] 101 H Respiratory Rate 20 Blood Pressure Blood Pressure [Right Arm] 205/160 H Blood Pressure Mean Blood Pressure Mean [Right Arm] 175 Blood Pressure Position [Right Arm] Lying Pulse Oximetry 96 Oxygen Delivery Method Mechanical Vent Fraction of Inspired Oxygen Sepsis Recent Fever Within 48 Hours Sepsis New/Unexplained Change in Mental Status Sepsis Action Taken by Nursing End-Tidal CO2 Laboratory Data Attestation: I reviewed the patient's lab results. Result diagrams: 04/28/21 23:39 04/28/21 23:39 Lab Results 04/28/21 04/28/21 04/28/21 Range/Units 23:10 23:39 23:39 WBC 10.05 (4.8-10.8) K/uL RBC 4.66 L (4.7-6.1) M/uL Hgb 14.7 (14.0-18.0) g/dL POC Hgb (14.0-18.0) g/dl Hct 45.7 (42-52) % POC Hct (42-52) % MCV 98.1 (80-100) fL MCH 31.5 (25-34) pg MCHC 32.2 (32-36) g/dL RDW Std Deviation 44.7 (36.4-46.3) fL RDW Coeff of Kaushik 12.4 (11.5-14.5) % Plt Count 208 (130-400) K/uL MPV 11.1 H (7.4-10.4) fL Immature Gran % (Auto) 2.0 % Neut % (Auto) 66.0 % Lymph % (Auto) 31.2 % Brewster % (Auto) 0.2 % Eos % (Auto) 0.4 % Baso % (Auto) 0.2 % Neut # (Auto) 6.63 H (1.4-6.5) K/uL Lymph # (Auto) 3.14 (1.2-3.4) K/uL Brewster # (Auto) 0.02 L (0.11-0.59) K/uL Eos # (Auto) 0.04 (0-0.5) K/uL Baso # (Auto) 0.02 (0-0.2) K/uL Immature Gran # (Auto) 0.20 H (0.00-0.02) K/uL PT (9.0-12.0) Seconds INR (0.9-1.1) APTT (21.0-31.0) Seconds PTT Ratio POC Sodium (135-144) mmol/L Sodium (136-145) mmol/L POC Potassium (3.3-5.0) mmol/L Potassium (3.5-5.1) mmol/L POC Chloride (101-112) mmol/L Chloride (98-107) mmol/L Carbon Dioxide (21-32) mmol/L POC Total CO2 (24-31) mmol/L Anion Gap (3-11) POC Anion Gap (16-25) mmol/L POC BUN (7-18) mg/dl BUN (7-18) mg/dl Creatinine (0.6-1.4) mg/dl POC Creatinine (0.6-1.3) mg/dl Est Cr Clr Drug Dosing Est GFR ( Amer) ml/min Est GFR (Non-Af Amer) ml/min BUN/Creatinine Ratio (10-20) Glucose (70-99) mg/dl POC Glucose (other) (70-99) mg/dl Lactate (0.4-2.0) mmol/L Calcium (8.5-10.1) mg/dl POC Ioniz Calcium Fortunato (1.12-1.32) mmol/l Phosphorus (2.5-4.9) mg/dl Magnesium (1.8-2.4) mg/dl Total Bilirubin (0.2-1) mg/dl AST (15-37) U/L ALT (12-78) Alkaline Phosphatase (45-117) U/L Total Creatine Kinase Troponin I (0-0.045) ng/ml Total Protein (6.4-8.2) gm/dl Albumin (3.4-5.0) gm/dl Globulin (2.5-4.0) gm/dl Albumin/Globulin Ratio (0.9-2) Lipase (73-393) U/L Specimen Hemolysis SARS-CoV-2, RNA, NAAT NEGATIVE (NEGATIVE) Blood Type Cancelled Antibody Screen Cancelled 04/28/21 04/28/21 04/28/21 Range/Units 23:39 23:39 23:41 WBC (4.8-10.8) K/uL RBC (4.7-6.1) M/uL Hgb (14.0-18.0) g/dL POC Hgb (14.0-18.0) g/dl Hct (42-52) % POC Hct (42-52) % MCV (80-100) fL MCH (25-34) pg MCHC (32-36) g/dL RDW Std Deviation (36.4-46.3) fL RDW Coeff of Kaushik (11.5-14.5) % Plt Count (130-400) K/uL MPV (7.4-10.4) fL Immature Gran % (Auto) % Neut % (Auto) % Lymph % (Auto) % Brewster % (Auto) % Eos % (Auto) % Baso % (Auto) % Neut # (Auto) (1.4-6.5) K/uL Lymph # (Auto) (1.2-3.4) K/uL Brewster # (Auto) (0.11-0.59) K/uL Eos # (Auto) (0-0.5) K/uL Baso # (Auto) (0-0.2) K/uL Immature Gran # (Auto) (0.00-0.02) K/uL PT 11.5 (9.0-12.0) Seconds INR 1.1 (0.9-1.1) APTT 26.7 (21.0-31.0) Seconds PTT Ratio 1.0 POC Sodium (135-144) mmol/L Sodium 141 (136-145) mmol/L POC Potassium (3.3-5.0) mmol/L Potassium 4.5 D (3.5-5.1) mmol/L POC Chloride (101-112) mmol/L Chloride 105 (98-107) mmol/L Carbon Dioxide 23 (21-32) mmol/L POC Total CO2 (24-31) mmol/L Anion Gap 13.0 H (3-11) POC Anion Gap (16-25) mmol/L POC BUN (7-18) mg/dl BUN 14 D (7-18) mg/dl Creatinine 2.23 H D (0.6-1.4) mg/dl POC Creatinine (0.6-1.3) mg/dl Est Cr Clr Drug Dosing Not Reportable Est GFR ( Amer) 43.3 ml/min Est GFR (Non-Af Amer) 37.3 ml/min BUN/Creatinine Ratio 6.1 L (10-20) Glucose 204 H (70-99) mg/dl POC Glucose (other) (70-99) mg/dl Lactate 9.2 H* (0.4-2.0) mmol/L Calcium 8.5 (8.5-10.1) mg/dl POC Ioniz Calcium Fortunato (1.12-1.32) mmol/l Phosphorus 11.3 H D (2.5-4.9) mg/dl Magnesium 2.6 H (1.8-2.4) mg/dl Total Bilirubin 0.4 (0.2-1) mg/dl AST 1104 H (15-37) U/L ALT 1168 H (12-78) Alkaline Phosphatase 101 (45-117) U/L Total Creatine Kinase TNP Troponin I 0.067 H* (0-0.045) ng/ml Total Protein 7.3 (6.4-8.2) gm/dl Albumin 3.4 (3.4-5.0) gm/dl Globulin 3.9 (2.5-4.0) gm/dl Albumin/Globulin Ratio 0.9 (0.9-2) Lipase 452 H (73-393) U/L Specimen Hemolysis SARS-CoV-2, RNA, NAAT (NEGATIVE) Blood Type Antibody Screen 04/28/21 Range/Units 23:42 WBC (4.8-10.8) K/uL RBC (4.7-6.1) M/uL Hgb (14.0-18.0) g/dL POC Hgb 15.6 (14.0-18.0) g/dl Hct (42-52) % POC Hct 46 (42-52) % MCV (80-100) fL MCH (25-34) pg MCHC (32-36) g/dL RDW Std Deviation (36.4-46.3) fL RDW Coeff of Kaushik (11.5-14.5) % Plt Count (130-400) K/uL MPV (7.4-10.4) fL Immature Gran % (Auto) % Neut % (Auto) % Lymph % (Auto) % Brewster % (Auto) % Eos % (Auto) % Baso % (Auto) % Neut # (Auto) (1.4-6.5) K/uL Lymph # (Auto) (1.2-3.4) K/uL Brewster # (Auto) (0.11-0.59) K/uL Eos # (Auto) (0-0.5) K/uL Baso # (Auto) (0-0.2) K/uL Immature Gran # (Auto) (0.00-0.02) K/uL PT (9.0-12.0) Seconds INR (0.9-1.1) APTT (21.0-31.0) Seconds PTT Ratio POC Sodium 140 (135-144) mmol/L Sodium (136-145) mmol/L POC Potassium 4.4 (3.3-5.0) mmol/L Potassium (3.5-5.1) mmol/L POC Chloride 101 (101-112) mmol/L Chloride (98-107) mmol/L Carbon Dioxide (21-32) mmol/L POC Total CO2 26 (24-31) mmol/L Anion Gap (3-11) POC Anion Gap 18.0 (16-25) mmol/L POC BUN 16 (7-18) mg/dl BUN (7-18) mg/dl Creatinine (0.6-1.4) mg/dl POC Creatinine 1.8 H (0.6-1.3) mg/dl Est Cr Clr Drug Dosing Est GFR ( Amer) ml/min Est GFR (Non-Af Amer) ml/min BUN/Creatinine Ratio (10-20) Glucose (70-99) mg/dl POC Glucose (other) 201 H (70-99) mg/dl Lactate (0.4-2.0) mmol/L Calcium (8.5-10.1) mg/dl POC Ioniz Calcium Fortunato 1.15 (1.12-1.32) mmol/l Phosphorus (2.5-4.9) mg/dl Magnesium (1.8-2.4) mg/dl Total Bilirubin (0.2-1) mg/dl AST (15-37) U/L ALT (12-78) Alkaline Phosphatase (45-117) U/L Total Creatine Kinase Troponin I (0-0.045) ng/ml Total Protein (6.4-8.2) gm/dl Albumin (3.4-5.0) gm/dl Globulin (2.5-4.0) gm/dl Albumin/Globulin Ratio (0.9-2) Lipase (73-393) U/L Specimen Hemolysis SARS-CoV-2, RNA, NAAT (NEGATIVE) Blood Type Antibody Screen Administered Medications Discontinued Medications Sodium Chloride (Nss 1000ml) 2,000 mls @ 999 mls/hr IV .Q2H1M ONE Stop: 04/29/21 01:02 Last Admin: 04/28/21 23:22 Dose: 999 mls/hr Documented by: [id number] Ioversol (Optiray 320 125ml) 123 ml IV ONCE ONE Stop: 04/29/21 01:18 Last Admin: 04/29/21 01:17 Dose: 123 ml Documented by: [id number] Imaging Data My Impression: CXR: No acute cardiopulmonary process. ET tube with acceptable placement per my preliminary review. Radiologist's Impression: [id number] Preliminary Findings Only See Final Report For Complete Findings CTA NECK: Normal CT angiogram of the neck. Radiologist: Hira Quintana MD Study ready at 01:35 and initial results transmitted at 01:41 Preliminary Findings Only See Final Report For Complete Findings CTA HEAD: The distal internal carotid, distal vertebral, and basilar arteries are widely patent. The anterior, middle, and posterior cerebral arteries appear widely patent. No aneurysm, vascular malformation, or arterial thrombus is identified. Loss of abel and white matter differentiation throughout the cerebrum consistent with global anoxic event. Radiologist: Hira Quintana MD Study ready at 01:27 and initial results transmitted at 01:37 Preliminary Findings Only See Final Report For Complete Findings CT C SPINE: No acute cervical spine fracture or traumatic subluxation is seen. The NG tube tip is in the larynx abutting the vocal cords with the tube looped in the lower oropharynx. Radiologist: Hira Quintana MD Study ready at 01:16 and initial results transmitted at 01:29 Preliminary Findings Only See Final Report For Complete Findings CT HEAD: Comparison to April 26, 2021. There is diffuse cerebral edema with lack of visualization of the abel and white matter differentiation as well as effacement of the basal cisterns. This is consistent with global anoxic event. The paranasal sinuses demonstrate mild mucosal thickening in the ethmoid air c ells per the remaining sinuses and mastoids are unremarkable. No skull fracture or scalp hematoma seen. Radiologist: Hira Quintana MD Study ready at 01:16 and initial results transmitted at 01:20 Discharge Plan Visit Data Chief Complaint: Cardiac Arrest/CPR Stated Complaint: POST CARDIAC ARREST ED Provider: Wilberto Flower Discharge Problem: Suicide attempt by hanging, Cardiac arrest, Hypotension, Acute renal failure, Elevated lactic acid level, Elevated troponin Patient Disposition: Admitted As Inpatient Discharge Instructions Interventions: ED Discharge Assessment Last Done: 04/29/21 02:33 Discharge Problem: Suicide attempt by hanging Qualifiers: Encounter type: initial encounter Qualified Code(s): T71.162A - Asphyxiation due to hanging, intentional self-harm, initial encounter Hypotension Qualifiers: Hypotension type: unspecified hypotension type Qualified Code(s): I95.9 - Hypotension, unspecified Acute renal failure Qualifiers: Acute renal failure type: unspecified Qualified Code(s): N17.9 - Acute kidney failure, unspecified
[2021-04-29 00:31] LABS: Alanine Aminotransferase 1168 (12-78); Albumin Globulin Ratio 0.9 (0.9-2); Albumin Level 3.4 gm/dl (3.4-5.0); Alkaline Phosphatase 101 U/L (45-117); BUN Creatinine Ratio 6.1 (10-20); Bilirubin,Total 0.4 mg/dl (0.2-1); Blood Urea Nitrogen 14 mg/dl (7-18); Calcium 8.5 mg/dl (8.5-10.1); Carbon Dioxide 23 mmol/L (21-32); Chloride 105 mmol/L (98-107); Est GFR (African American) 43.3 ml/min; Est GFR (Non-African American) 37.3 ml/min; Globulin 3.9 gm/dl (2.5-4.0); Glucose 204 mg/dl (70-99); Lipase 452 U/L (73-393); Sodium 141 mmol/L (136-145); Total Protein 7.3 gm/dl (6.4-8.2); Troponin I 0.067 ng/ml (0-0.045)
--- NOTE | 2021-04-29 00:46 | Procedure Note ---
Procedure Note Date of Service April 29, 2021 Note Procedure: Femoral Arterial Line Placement Attending: Dr. Dimas APC: Edson Quinteros PA-C Indication: Central Drug Administration, Poor Venous Access, Multiple Lab Draws Necessary, etc. Anesthesia: Lidocaine 1% Emergent consent implied in the setting of rapidly deteriorating patient status post cardiac arrest requiring close hemodynamic monitoring, frequent ABGs, frequent labs, etc. A time-out was completed verifying correct patient, procedure, site, positioning, and implants(s) or special equipment if applicable. Patients RIGHT Groin had previously been accessed by ED Provider for RIGHT femoral CVL. The groin was cleansed and draped in the typical sterile fashion using Chloraprep. The Femoral Vein and Femoral Artery were identified using ultrasound. The superficial tissue was anesthetized using 2.0 mL of 1% lidocaine without epinephrine under direct visualization with the ultrasound. After adequate anesthetization was achieved, the Femoral Artery was cannulated on first attempt under direct ultrasound guidance using an introducer needle on a syringe. Good arterial blood return was maintained prior to removal of syringe from introducer needle. Pulsatile blood flow was noted from the needle. Using [employer]inger [employer], a guide wire was advanced through the introducer needle without resistance. The introducer needle was removed and ultrasound images were obtained of the guide wire within the Femoral artery. Images unable to be saved as ED ultrasound not capable of this feature. The femoral artery catheter was advanced over the wire into the vessel without resistance. Guide wire was removed intact from the catheter without issue. Pulsatile blood flow was noted just prior to connecting the catheter to the arterial line tubing. Nursing staff did easily draw back and flush from the line while procedure was completed. The line was sutured in place. BioPatch was applied to the catheter and sterile Tegaderm dressing was applied over both the femoral arterial and CVL sites with careful attention to sterility. Patient tolerated procedure well. No immediate complications were met. Procedural Ultrasound Guidance: Procedure Date: 04/29/2021 Indication: Pressors, frequent ABGs, frequent lab draws. Attending: Dr. Dimas APC: Edson Quinteros PA-C Artery AND Vein visualized: YES Line confirmed in artery with ultrasound: YES Images obtained are saved for permanent record. Coding CPT Codes Tubes, Drains, and Vasc Access - Tubes, Drains, and Vasc Access: [id number] Place Catheter In Artery ([id number]) [facility] Procedure Codes (Charges) Tubes, Drains, and Vasc Access Procedure 1: Tubes, Drains, and Vasc Access: [id number] Place Catheter In Artery
--- NOTE | 2021-04-29 00:46 | Critical Care Consultation ---
Date of Consultation April 29, 2021 Assessment & Plan (1) Admitted to intensive care unit: Reason Critically Ill: 35-year-old male who is status post suicide attempt by hanging with profound anoxic event resulting in cardiac arrest. ROSC achieved after approximately [address] concerning for significant anoxic injury. Admit to ICU for continued management. NEURO - * CAM ICU: Unable to assess * Anoxic brain injury: * Patient with profound anoxic injury status post hanging resulting in cardiac arrest. Downtime approximately [address] noncontrast of the brain concerning for diffuse cerebral edema with lack of visualization of the abel and white matter differentiation consistent with global anoxic event. Patient has been unresponsive and is without purposeful movements. He is without gag reflex. No cough. Pupils fixed and dilated. No other purposeful movement appreciated. Occasional fasciculations of the larger muscles appreciated. * Not requiring any sedation. * Unfortunately, this appears to be catastrophic injury per exam with associated CT findings. * Of concern, the patient became extremely hypertensive with systolic blood pressures in the 200s while laying flat in the emergency department. This has seemed to improve with elevation of head of bed. * Will keep head of bed elevated. * Will shoot for degree of hypocapnia. * Don't disagree with steroids. * No role for TTM in this patient, but will aim to maintain normothermia w/o fevers. * Seizure disorder: * Recently admitted to this institution for the same. * Restarted home Rx. * Agree w/ Keppra currently in the event that the patient is w/ non- convulsive status. * Add additional sedation if needed. * EEG if able. * Neuro consult if able. CARDIAC/VASCULAR - * Cardiac arrest w/ ROSC: * Likely 2/2 respiratory failure. * Currently requiring minimal pressor support. * Monitor on telemetry. RESPIRATORY - * Respiratory failure 2/2 asphyxiation: * Currently intubated. * Will wean down ventilator settings as tolerated. * Will allow permissive hypocapnia for added benefit in ICP reduction. GI/NUTRITION - * OGT in place. * Prophylaxis: RENAL/LYTES - * SIVAKUMAR: * Likely prerenal in the setting of cardiac arrest. * IVF: NSS @ 100 mL/hr - * Teague in place - Strict I&Os. ENDO - * BSGs per unit protocol. ISS --> gtt per unit policy. HEME - * Stable H&H ID - * No concerns for secondary infection at this time. LINES/IV ACCESS - * PIVs x2 * ET Tube * OGT * Teague * RIGHT Femoral CVL * RIGHT Femoral A line DVT PROPHYLAXIS - * SCDs CODE STATUS - * As patient is currently incarcerated, he will remain FULL CODE at this time. * GOL to be contacted by clinical coordinator. * Coordinator to reach out to warden to obtain permission to speak to next of kin or move forward with GOL assessment. I have personally spent 79 minutes of critical care time in the direct management of this patient. This is a life/limb threatening event. This includes time spent evaluating patient, direct bedside care, chart review, placing orders, interpretation of diagnostic studies, discussion with consultants, patient, and family members, as well as other required patient management activities. This time is exclusive of all separately billable procedures, and teaching time and separate from and in addition to any other critical care service time. Thank you for allowing us to participate in the care of this patient. Please refer to my attending physician's documentation for any further recommendations. (2) Suicide attempt by hanging: (3) Cardiac arrest: (4) Elevated troponin: (5) Acute renal failure: (6) Elevated lactic acid level: (7) Seizures: History of Present Illness History of Present Illness Patient is a 35-year-old incarcerated male with a significant past medical history of seizure disorder, hypertension, asthma, and medication noncompliance who presented to the emergency department as a CODE ARCTIC after suicide attempt in the form of hanging. Per review of documentation and conversation with staff, the patient was last seen well at 2150. At 2200, the patient was found hanging in his cell. Chest compressions were initiated by staff. He received defibrillation x2 by an AED from the [facility]. Upon EMS arrival, the patient was noted to be in PEA. He received three doses of epinephrine during resuscitation efforts. Patient regained pulse at 2239. He briefly lost a pulse at 2240, but after receiving one amp of epinephrine, the patient regained a pulse again at 2241. Upon arrival in the emergency department, the patient was hypotensive with pressures in the 60s. He received two separate doses of epinephrine in the emergency department. Femoral line access was achieved. CT of the head suggestive of diffuse anoxic injury with near complete loss of abel-white matter. Initial orders placed for Levophed, however the patient became extremely hypertensive. I did discuss the case my attending physician. Patient does not meet criteria for TTM at this time. Patient to be admitted to the ICU for ongoing evaluation and management. Allergies Allergy/AdvReac Type Severity Reaction Status Date / Time brown Allergy Unknown Verified 04/28/21 23:11 Penicillins Allergy Unknown Verified 04/28/21 23:11 ONIONS Allergy Unknown Uncoded 04/28/21 23:11 Home Medications Medication Instructions Recorded Confirmed Type amlodipine 10 mg tablet 10 mg PO DAILY 04/26/21 04/28/21 History aripiprazole 15 mg tablet 15 mg PO DAILY 04/26/21 04/28/21 History hydroxyzine HCl 50 mg tablet 100 mg PO HS 04/26/21 04/28/21 History levalbuterol tartrate 45 2 inh INHALATION QID PRN 04/26/21 04/28/21 History mcg/actuation aerosol inhaler (Xopenex HFA) topiramate 50 mg tablet 50 mg PO HS 04/26/21 04/28/21 History trazodone 150 mg tablet 150 mg PO HS 04/26/21 04/28/21 History gabapentin 100 mg capsule 100 mg PO TID 30 Days #90 cap 04/27/21 04/28/21 Rx levetiracetam 750 mg tablet 1,500 mg PO BID 04/28/21 04/28/21 History Patient History Medical History Asthma Hypertension Seizures Family History Other Family history non-contributory Social History Smoking Status: Former smoker Tobacco Type: Cigarettes Hx Alcohol Use: No Hx Substance Use: Yes Preferred Language: Cymro Communication Ability: Unable [employer] Head Required: No Beliefs That Will Affect Care: None Current Living Situation: Other Feels Safe at Home: Yes Assistive Devices: None Review of Systems Review of Systems: Unobtainable due to endotracheal tube and Unobtainable due to reduced consciousness Physical Exam Physical Exam: VITAL SIGNS - Vital signs and nursing notes were reviewed. GENERAL - 35-year-old male appearing his stated age. Intubated. HEAD - Normocephalic, Atraumatic. No Cheney's Sign or Raccoon's Eyes. No depressed skull fractures palpable. EYES - Pupils fixed and dilated. EARS - No deformities of external structures noted on gross examination bilaterally. NOSE - Midline and without cyanosis. No epistaxis or purulent drainage noted. MOUTH/OROPHARYNX - ET tube in place. Without perioral cyanosis. NECK - Ligature weaver across the anterior aspect of the neck. LUNGS - Chest wall symmetric without accessory muscle use, intercostals retractions, or central cyanosis. Normal vesicular breath sounds CTA B/L. No wheezes, rales, or rhonchi appreciated. CARDIAC - RRR with S1/S2. No murmur, rubs, or gallops appreciated. ABDOMEN - Abdominal contour flat without pulsations or visible masses. BS normoa ctive all four quadrants. No tenderness, palpable masses, hepatosplenomegaly, or ascites noted. EXTREMITIES - No pretibial edema present. +3/5 radial and dorsalis pedis pulses palpated throughout. NEUROLOGIC - Pupils fixed and dilated. No gag reflex. No cough. Slightly breathing over the vent. Results & Data Results & Data ([facility]) Vital Signs (Past 12 Hours) Vital Signs Pulse Resp BP Pulse Ox 04/29/21 00:01 85 12 88/55 L 98 04/28/21 23:00 96 H 20 92 Coding Level of Care Code Critical Care 1st 30-74 mins Diagnoses Admitted to intensive care unit Z78.9 Suicide attempt by hanging T71.162A Encounter type: initial encounter Cardiac arrest I46.9 Elevated troponin R77.8 Acute renal failure N17.9 Acute renal failure type: unspecified Elevated lactic acid level R79.89 Seizures R56.9 Time Spent (min) 79 (1) Suicide attempt by hanging Encounter type: initial encounter Qualified Code(s): T71.162A - Asphyxiation due to hanging, intentional self-harm, initial encounter (2) Acute renal failure Acute renal failure type: unspecified Qualified Code(s): N17.9 - Acute kidney failure, unspecified
[2021-04-29 00:51] LABS: Phosphorus 11.3 mg/dl (2.5-4.9)
--- NOTE | 2021-04-29 01:15 | History & Physical Report ---
Date of Service April 29, 2021 Assessment & Plan (1) Suicide attempt by hanging: Plan: Suicide attempt by hanging/cardiac arrest- Intubated in field Continue mechanical ventilator admit to ICU Hypotension in the ED improved by Levophed, but now with increasing blood pressure, may need to be tapered to be off (2) Cardiac arrest: Plan: See above Check echocardiogram (3) Admitted to intensive care unit: Plan: Consult inspector and staff (4) Seizures: Plan: Patient was recently admitted to [facility] due to status epilepticus associated with medication noncompliance Place on Keppra 1500 mg IV twice daily, with first dose now Holding topiramate and gabapentin while n.p.o. (5) Hypertension: Plan: Holding amlodipine while n.p.o., and hypotensive (6) Hypotension: Plan: Responding to IV fluids and Levophed, but with improving blood pressure, may need to have Levophed tapered History of Present Illness Chief Complaint: The patient is brought to the emergency department via EMS from [facility] after a suicide attempt with cardiac arrest and status post ROSC Primary Care Provider: ANABELA Jimenez The patient is a 35-year-old male with past medical history including seizure disorder, status epilepticus with hospitalization from 04/26-04/27 due to not taking medications, hypertension and asthma. Patient was found by senior living staff after unknown period of time following attempted hanging, and intubated in the field by EMS, and received epinephrine due to hypotension. Upon arrival to the ED, patient had blood pressure 60s/40s, heart rate 90s-100s on mechanical vent ilator. Pupils were fixed and dilated with no corneal reflex. CT scan of head without contrast showed diffuse cerebral edema. Significant laboratories: Creatinine 2.23, glucose 204, lactate 9.2, phosphorus 11.3, AST 1104, ALT 1168, troponin 0.067 and lipase 452. Allergies Allergy/AdvReac Type Severity Reaction Status Date / Time brown Allergy Unknown Verified 04/28/21 23:11 Penicillins Allergy Unknown Verified 04/28/21 23:11 ONIONS Allergy Unknown Uncoded 04/28/21 23:11 Home Medications Medication Instructions Recorded Confirmed Type amlodipine 10 mg tablet 10 mg PO DAILY 04/26/21 04/28/21 History aripiprazole 15 mg tablet 15 mg PO DAILY 04/26/21 04/28/21 History hydroxyzine HCl 50 mg tablet 100 mg PO HS 04/26/21 04/28/21 History levalbuterol tartrate 45 2 inh INHALATION QID PRN 04/26/21 04/28/21 History mcg/actuation aerosol inhaler (Xopenex HFA) topiramate 50 mg tablet 50 mg PO HS 04/26/21 04/28/21 History trazodone 150 mg tablet 150 mg PO HS 04/26/21 04/28/21 History gabapentin 100 mg capsule 100 mg PO TID 30 Days #90 cap 04/27/21 04/28/21 Rx levetiracetam 750 mg tablet 1,500 mg PO BID 04/28/21 04/28/21 History Past Med/Surg History Medical History Asthma Hypertension Seizures Family History Other Family history non-contributory Social History Smoking Status: Former smoker Tobacco Type: Cigarettes Hx Alcohol Use: No Hx Substance Use: Yes Feels Safe at Home: Yes Assistive Devices: None Review of Systems Review of Systems: Unobtainable due to mechanical ventilation Physical Exam Physical Exam: The patient is nonresponsive on ventilator. HEENT--pupils fixed and dilated, unresponsive. Oropharynx dry Neck--supple. No JVD. No bruits. Rope valdes around neck Heart--normal S1 and S2. No murmurs, rubs or gallops. Lungs--clear bilaterally, on ventilator. No respiratory distress, no accessory muscle use. Abdomen--normal bowel sounds and soft. Nontender. Nondistended. Morbid obesity Extremities--no cyanosis or clubbing. No edema. Dermatologic--rope weaver around neck Neurologic--limited exam on ventilator. Absent corneal reflex Rheumatologic--limited exam. Psychiatric-nonresponsive. Results & Data Results & Data ([facility]) Vital Signs (Past 12 Hours) Vital Signs Pulse Resp BP Pulse Ox 04/29/21 00:01 85 12 88/55 L 98 04/28/21 23:00 96 H 20 92 Laboratory Results Laboratory Results WBC 10.05 K/uL (4.8-10.8) 04/28/21 23:39 RBC 4.66 M/uL (4.7-6.1) L 04/28/21 23:39 Hgb 14.7 g/dL (14.0-18.0) 04/28/21 23:39 POC Hgb 15.6 g/dl (14.0-18.0) 04/28/21 23:42 Hct 45.7 % (42-52) 04/28/21 23:39 POC Hct 46 % (42-52) 04/28/21 23:42 MCV 98.1 fL (80-100) 04/28/21 23:39 MCH 31.5 pg (25-34) 04/28/21 23:39 MCHC 32.2 g/dL (32-36) 04/28/21 23:39 RDW Std Deviation 44.7 fL (36.4-46.3) 04/28/21 23:39 RDW Coeff of Kaushik 12.4 % (11.5-14.5) 04/28/21 23:39 Plt Count 208 K/uL (130-400) 04/28/21 23:39 MPV 11.1 fL (7.4-10.4) H 04/28/21 23:39 Immature Gran % (Auto) 2.0 % 04/28/21 23:39 Neut % (Auto) 66.0 % 04/28/21 23:39 Lymph % (Auto) 31.2 % 04/28/21 23:39 Grayson % (Auto) 0.2 % 04/28/21 23:39 Eos % (Auto) 0.4 % 04/28/21 23:39 Baso % (Auto) 0.2 % 04/28/21 23:39 Neut # (Auto) 6.63 K/uL (1.4-6.5) H 04/28/21 23:39 Lymph # (Auto) 3.14 K/uL (1.2-3.4) 04/28/21 23:39 Grayson # (Auto) 0.02 K/uL (0.11-0.59) L 04/28/21 23:39 Eos # (Auto) 0.04 K/uL (0-0.5) 04/28/21 23:39 Baso # (Auto) 0.02 K/uL (0-0.2) 04/28/21 23:39 Immature Gran # (Auto) 0.20 K/uL (0.00-0.02) H 04/28/21 23:39 PT 11.5 Seconds (9.0-12.0) 04/28/21 23:41 INR 1.1 (0.9-1.1) 04/28/21 23:41 APTT 26.7 Seconds (21.0-31.0) 04/28/21 23:41 PTT Ratio 1.0 04/28/21 23:41 POC Sodium 140 mmol/L (135-144) 04/28/21 23:42 Sodium 141 mmol/L (136-145) 04/28/21 23:39 POC Potassium 4.4 mmol/L (3.3-5.0) 04/28/21 23:42 Potassium 4.5 mmol/L (3.5-5.1) D 04/28/21 23:39 POC Chloride 101 mmol/L (101-112) 04/28/21 23:42 Chloride 105 mmol/L (98-107) 04/28/21 23:39 Carbon Dioxide 23 mmol/L (21-32) 04/28/21 23:39 POC Total CO2 26 mmol/L (24-31) 04/28/21 23:42 Anion Gap 13.0 (3-11) H 04/28/21 23:39 POC Anion Gap 18.0 mmol/L (16-25) 04/28/21 23:42 POC BUN 16 mg/dl (7-18) 04/28/21 23:42 BUN 14 mg/dl (7-18) D 04/28/21 23:39 Creatinine 2.23 mg/dl (0.6-1.4) H D 04/28/21 23:39 POC Creatinine 1.8 mg/dl (0.6-1.3) H 04/28/21 23:42 Est Cr Clr Drug Dosing Not Reportable 04/28/21 23:39 Est GFR ( Amer) 43.3 ml/min 04/28/21 23:39 Est GFR (Non-Af Amer) 37.3 ml/min 04/28/21 23:39 BUN/Creatinine Ratio 6.1 (10-20) L 04/28/21 23:39 Glucose 204 mg/dl (70-99) H 04/28/21 23:39 POC Glucose (other) 201 mg/dl (70-99) H 04/28/21 23:42 Lactate 9.2 mmol/L (0.4-2.0) H* 04/28/21 23:39 Calcium 8.5 mg/dl (8.5-10.1) 04/28/21 23:39 POC Ioniz Calcium Fortunato 1.15 mmol/l (1.12-1.32) 04/28/21 23:42 Phosphorus 11.3 mg/dl (2.5-4.9) H D 04/28/21 23:39 Magnesium 2.6 mg/dl (1.8-2.4) H 04/28/21 23:39 Total Bilirubin 0.4 mg/dl (0.2-1) 04/28/21 23:39 AST 1104 U/L (15-37) H 04/28/21 23:39 ALT 1168 (12-78) H 04/28/21 23:39 Alkaline Phosphatase 101 U/L (45-117) 04/28/21 23:39 Total Creatine Kinase TNP 04/28/21 23:39 Troponin I 0.067 ng/ml (0-0.045) H* 04/28/21 23:39 Total Protein 7.3 gm/dl (6.4-8.2) 04/28/21 23:39 Albumin 3.4 gm/dl (3.4-5.0) 04/28/21 23:39 Globulin 3.9 gm/dl (2.5-4.0) 04/28/21 23:39 Albumin/Globulin Ratio 0.9 (0.9-2) 04/28/21 23:39 Lipase 452 U/L (73-393) H 04/28/21 23:39 Specimen Hemolysis 04/28/21 23:39 SARS-CoV-2, RNA, NAAT NEGATIVE (NEGATIVE) 04/28/21 23:10 Blood Type Cancelled 04/28/21 23:39 Antibody Screen Cancelled 04/28/21 23:39 Diagnostic Findings [facility] Patient: MARQUIS KYLE [id number] (Male) : 89 Status: ER Date: 12/11/21 01:11 Room #: History: TRAUMA; PT. HUNG HIMSELF. PT. POST CARDIAC ARREST PT. IS INTUBATED, UNRESPOSIVE. UNABLE TO REMOVE LINES/MONITORS PT. IS UNABLE TO HOLD STILL FOR SCAN, BEST IMAGES POSSIBLE Slices: 75 Priors: Randell: Jessica Butts @ [phone] Exams: CT HEAD Contrast: Accession Numbers: [id number] Referring Physician: RAGHU PEÑALOZA Preliminary Findings Only See Final Report For Complete Findings CT HEAD: Comparison to April 26, 2021. There is diffuse cerebral edema with lack of visualization of the abel and white matter differentiation as well as effacement of the basal cisterns. This is consistent with global anoxic event. The paranasal sinuses demonstrate mild mucosal thickening in the ethmoid air cells per the remaining sinuses and mastoids are unremarkable. No skull fracture or scalp hematoma seen. Radiologist: Hira Quintana MD Study ready at 01:16 and initial results transmitted at 01:20 Communications: Clear Time Type Notes 04/29/21 01:23 Call Doctor Regarding Elisa woods, called Dr. Flower on 04/29 01:22 (- 05:00) *This report constitutes a preliminary interpretation only. Non-acute findings felt to be unrelated to the clinical presentation may not be discussed in this report. The study will be interpreted and a final report will be generated by the local Radiologist the following shift. To reach the [facility] radiology department call [phone]. If a discrepancy is found between the preliminary and final interpretations of this study, please notify us via our Client Portal at [email or web address], under QA Exams. You can also fax this report with a description of the discrepancy, or include the final report, to our daytime fax number [phone]. If faxing, please indicate the severity of discrepancy using one of the following categories: [ ] 1 - Agree/Informational [ ] 2 - Unlikely to Affect Management [ ] 3 - Possible Eventual Change of Management [ ] 4 - Probable Immediate Change of Management For all other patient related information, please fax us at [phone]. [id number] [facility] Patient: MARQUIS KYLE [id number] (Male) : 89 Status: ER Date: 04/29/21 01:16 Room #: History: TRAUMA; PT. HUNG HIMSELF. PT. POST CARDIAC ARREST PT. IS INTUBATED, UNRESPOSIVE. UNABLE TO REMOVE LINES/MONITORS PT. IS UNABLE TO HOLD STILL FOR SCAN, BEST IMAGES POSSIBLE Slices: [phone] Priors: Tech: Jessica Butts @ [phone] Exams: CT C SPINE Contrast: Accession Numbers: [id number] Referring Physician: RAGHU PEÑALOZA Preliminary Findings Only See Final Report For Complete Findings CT C SPINE: No acute cervical spine fracture or traumatic subluxation is seen. The NG tube tip is in the larynx abutting the vocal cords with the tube looped in the lower oropharynx. Radiologist: Hira Quintana MD Study ready at 01:16 and initial results transmitted at 01:29 *This report constitutes a preliminary interpretation only. Non-acute findings felt to be unrelated to the clinical presentation may not be discussed in this report. The study will be interpreted and a final report will be generated by the local Radiologist the following shift. To reach the [facility] radiology department call [phone]. If a discrepancy is found between the preliminary and final interpretations of this study, please notify us via our Client Portal at [email or web address], under [email or web address] Exams. You can also fax this report with a description of the discrepancy, or include the final report, to our daytime fax number [phone]. If faxing, please indicate the severity of discrepancy using one of the following categories: [ ] 1 - Agree/Informational [ ] 2 - Unlikely to Affect Management [ ] 3 - Possible Eventual Change of Management [ ] 4 - Probable Immediate Change of Management For all other patient related information, please fax us at [phone]. [id number] [facility] Patient: MARQUIS KYLE [id number] (Male) : 89 Status: ER Date: 04/29/21 01:22 Room #: History: TRAUMA; PT. HUNG HIMSELF. PT. POST CARDIAC ARREST PT. IS INTUBATED, UNRESPOSIVE. UNABLE TO REMOVE LINES/MONITORS PT. IS UNABLE TO HOLD STILL FOR SCAN, BEST IMAGES POSSIBLE OPTI [phone] CC Slices: [phone] Priors: Tech: Jessica Butts @ [phone] Exams: CTA HEAD Contrast: IV Amt: OPTIRAY 320 123 CC Accession Numbers: [id number] Referring Physician: RAGHU PEÑALOZA Preliminary Findings Only See Final Report For Complete Findings CTA HEAD: The distal internal carotid, distal vertebral, and basilar arteries are widely patent. The anterior, middle, and posterior cerebral arteries appear widely patent. No aneurysm, vascular malformation, or arterial thrombus is identified. Loss of abel and white matter differentiation throughout the cerebrum consistent with global anoxic event. Radiologist: Hira Quintana MD Study ready at 01:27 and initial results transmitted at 01:37 *This report constitutes a preliminary interpretation only. Non-acute findings felt to be unrelated to the clinical presentation may not be discussed in this report. The study will be interpreted and a final report will be generated by the local Radiologist the following shift. To reach the [facility] radiology department call [phone]. If a discrepancy is found between the preliminary and final interpretations of this study, please notify us via our Client Portal at [email or web address], under QA Exams. You can also fax this repo rt with a description of the discrepancy, or include the final report, to our daytime fax number [phone]. If faxing, please indicate the severity of discrepancy using one of the following categories: [ ] 1 - Agree/Informational [ ] 2 - Unlikely to Affect Management [ ] 3 - Possible Eventual Change of Management [ ] 4 - Probable Immediate Change of Management For all other patient related information, please fax us at [phone]. [id number] [facility] Patient: MARQUIS KYLE [id number] (Male) : 89 Status: ER Date: 04/29/21 01:28 Room #: History: TRAUMA; PT. HUNG HIMSELF. PT. POST CARDIAC ARREST PT. IS INTUBATED, UNRESPOSIVE. UNABLE TO REMOVE LINES/MONITORS PT. IS UNABLE TO HOLD STILL FOR SCAN, BEST IMAGES POSSIBLE OPTI 320 123 CC Slices: [phone] Priors: Tech: Jessica Butts @ [phone] Exams: CTA NECK Contrast: IV Amt: optiray 320 123 cc Accession Numbers: [id number] Referring Physician: RAGHU PEÑALOZA Preliminary Findings Only See Final Report For Complete Findings CTA NECK: Normal CT angiogram of the neck. Radiologist: Hira Quintana MD Study ready at 01:35 and initial results transmitted at 01:41 *This report constitutes a preliminary interpretation only. Non-acute findings felt to be unrelated to the clinical presentation may not be discussed in this report. The study will be interpreted and a final report will be generated by the local Radiologist the following shift. To reach the [facility] radiology department call [phone]. If a discrepancy is found between the preliminary and final interpretations of this study, please notify us via our Client Portal at [email or web address], under [email or web address] [email or web address]. You can also fax this report with a description of the discrepancy, or include the final report, to our daytime fax number [phone]. If faxing, please indicate the severity of discrepancy using one of the following categories: [ ] 1 - Agree/Informational [ ] 2 - Unlikely to Affect Management [ ] 3 - Possible Eventual Change of Management [ ] 4 - Probable Immediate Change of Management For all other patient related information, please fax us at [phone]. [id number] Code Status & VTE Plan Code Status Full code VTE Prophylaxis Plan VTE Prophylaxis will be ordered: Yes PG Care Time/CCT Total # of Minutes Spent Total Time Spent with Patient: Total time spent is greater than 50% in coordination of care (as documented) at patient's floor/unit and/or counseling patient: 55 minutes Coding Level of Care Code 98812 Initial Inpt Care Lvl 3 Diagnoses Suicide attempt by hanging T71.162A Cardiac arrest I46.9 Admitted to intensive care unit Z78.9 Seizures R56.9 Hypertension I10 Hypotension I95.9
[2021-04-29] MEDS ORDERED: OPTIRAY 320 125ml IV ONE (01:17)
[2021-04-29] MEDS ORDERED: dexAMETHasone**PF** 10 MG/ML VIAL IV ONE (01:26)
[2021-04-29] MEDS ORDERED: ALBUT/IPRATROP 3MG/0.5MG NEB 3 ML VIAL NEB PRN (01:33)
[2021-04-29] MEDS ORDERED: SODIUM CHLORIDE 0.9% 1000ML 1,000 ML IV SCH (01:45)
[2021-04-29 01:53] LABS: INR 1.1 (0.9-1.1); Partial Thromboplastin Time 26.7 Seconds (21.0-31.0); Prothrombin Time 11.5 Seconds (9.0-12.0)
[2021-04-29] MEDS ORDERED: ICU PROTOCOL FOR HYPERGLYCEMIA PRN (02:33)
[2021-04-29] MEDS: levETIRAcetam 1,500 MG in 0.9 % SODIUM CHLORIDE 100 ML IV SCH ×2 (03:26→13:03)
[2021-04-29] MEDS: SODIUM CHLORIDE 0.9% 1000ML 1,000 ML IV SCH ×3 (03:27→22:13)
[2021-04-29] MEDS ORDERED: dexAMETHasone 10 MG in SYRINGE 0 ML IV SCH (03:30)
[2021-04-29 04:59] LABS: iSTAT Arterial Blood Gas HCO3 21 meg/L (19-24); iSTAT Arterial Blood Gas pCO2 49 mmHg (35-46); iSTAT Arterial Blood Gas pH 7.25 (7.35-7.45); iSTAT Arterial Blood Gas pO2 > 420 mmHg (80-95); iSTAT Carbon Dioxide 23 mmol/L (24-31); iSTAT FiO2 100 %; iSTAT Site Art Line
[2021-04-29] MEDS: NOREPINEPHRINE/D5W 8 MG/508 ML BAG IV SCH ×2 (05:18→20:45)
[2021-04-29 06:35] LABS: Albumin Level 4.1 gm/dl (3.4-5.0); BUN Creatinine Ratio 9.5 (10-20); Calcium 8.5 mg/dl (8.5-10.1); Creatinine Clr Calc Pharmacy 63.9 ml/min; Est GFR (African American) 49.1 ml/min; Est GFR (Non-African American) 42.3 ml/min; Magnesium 2.1 mg/dl (1.8-2.4); Potassium 4.8 mmol/L (3.5-5.1)
[2021-04-29 06:44] LABS: Bilirubin,Total 0.6 mg/dl (0.2-1); Globulin 4.3 gm/dl (2.5-4.0); Phosphorus 3.9 mg/dl (2.5-4.9); Total Protein 8.4 gm/dl (6.4-8.2); Troponin I 2.61 ng/ml (0-0.045)
[2021-04-29 08:04] LABS: Basophils # (auto) 0.01 K/uL (0-0.2); Basophils % (auto) 0.1 %; Eosinophils # (auto) 0.01 K/uL (0-0.5); Eosinophils % (auto) 0.1 %; Hematocrit (blood only) 55.2 % (42-52); Immature Granulocytes # (auto) 0.06 K/uL (0.00-0.02); Immature Granulocytes % (auto) 0.7 %; Lymphocytes % (auto) 7.6 %; Mean Corpuscular Hemoglobin 31.7 pg (25-34); Mean Corpuscular Hgb Conc 34.4 g/dL (32-36); Mean Corpuscular Volume 92.2 fL (80-100); Mean Platelet Volume 10.7 fL (7.4-10.4); Monocytes # (auto) 0.31 K/uL (0.11-0.59); Monocytes % (auto) 3.4 %; Neutrophils # (auto) 8.13 K/uL (1.4-6.5); Neutrophils % (auto) 88.1 %; Platelet Count 175 K/uL (130-400); RDW Coefficient of Variation 12.4 % (11.5-14.5); RDW Standard Deviation 41.7 fL (36.4-46.3); Red Blood Count 5.99 M/uL (4.7-6.1); White Blood Count 9.22 K/uL (4.8-10.8)
--- NOTE | 2021-04-29 08:07 | XRay Report ---
XR chest 1V portable CLINICAL HISTORY: intubation, hanging. COMPARISON STUDY: 04/26/2021 TECHNIQUE: 1 view of the chest FINDINGS: Single frontal view of the chest demonstrates the cardiomediastinal silhouette to be within normal li mits. Endotracheal tube has been placed with its tip approximately 5.9 cm above the steve. The lungs are clear of alveolar opacities. There is no evidence for pleural effusion. There is no evidence for vascular congestion. There is no acute osseous pathology. IMPRESSION: No acute cardiopulmonary disease. Status post intubation. ACT 112: Negative or not required by law. Electronically signed by: Deon Muñoz M.D. 04/29/2021 8:05 AM
--- NOTE | 2021-04-29 08:17 | CT Scan Report ---
CT head/brain wo con CLINICAL HISTORY: hanging, cardiac arrest COMPARISON STUDY: No previous studies for comparison. TECHNIQUE: Standard CT of the Brain was performed without IV contrast. A dose lowering technique was utilized adhering to the principles of ALARA. FINDINGS: . Extraaxial space: There is no evidence for subdural hematoma. There are no extra-axial fluid collecti ons. Ventricles and cisterns: The ventricles are normal in size and configuration. There is no evidence f or midline shift or mass effect. Parenchyma: There is no subarachnoid or intraparenchymal hemorrhage. There is diffuse cerebral edema with lack of visualization of the abel-white matter differentiation. The findings are characteristic of a global anoxic event. There is loss of visualization of the basal cisterns due to the diffuse ce rebral edema. The findings correlate with the patient's history of a hanging Osseous structures: There is no evidence for an acute fracture. There is mucosal thickening of the et hmoid air cells bilaterally. The remaining visualized paranasal sinuses are clear. The mastoid air ce lls are clear bilaterally. Soft tissues: There is no evidence for focal soft tissue swelling. IMPRESSION: Diffuse cerebral edema characteristic of a global anoxic event. ACT 112: Negative or not required by law. Electronically signed by: Deon Muñoz M.D. 04/29/2021 8:15 AM
--- NOTE | 2021-04-29 08:50 | Hospitalist Progress Note ---
Date of Service April 29, 2021 Assessment & Plan (1) Suicide attempt by hanging: Plan: Suicide attempt by hanging/cardiac arrest- Intubated in field Continue mechanical ventilator admit to ICU Hypotension in the ED improved by Levophed, but now with increasing blood pressure, may need to be tapered to be off (2) Cardiac arrest: Plan: Pt has lateral st depression on ECG on intake troponin is uptrending Check echocardiogram (3) Admitted to intensive care unit: Plan: Consult assistant corporate secretary and staff (4) Seizures: Plan: Patient was recently admitted to [facility] due to status epilepticus associated with medication noncompliance Place on Keppra 1500 mg IV twice daily, with first dose now Holding topiramate and gabapentin while n.p.o. (5) Hypertension: Plan: Holding amlodipine while n.p.o., and hypotensive (6) Hypotension: Plan: Responding to IV fluids and Levophed, but with improving blood pressure, may need to have Levophed tapered Admission and Anticipated Discharge Date Admission Date: April 29, 2021 Results & Data Results & Data ([facility]) Vital Signs (Past 12 Hours) Vital Signs Temp Pulse Pulse Resp BP BP Pulse Ox 04/29/21 07:00 92.3 F L 82 28 H 96 04/29/21 06:30 92.3 F L 86 28 H 95 04/29/21 06:15 92.3 F L 88 24 95 04/29/21 06:00 92.1 F L 89 24 95 04/29/21 05:45 92.3 F L 91 H 24 95 04/29/21 05:30 92.3 F L 93 H 21 95 04/29/21 05:16 92.3 F L 94 H 21 93 04/29/21 04:33 24 04/29/21 02:33 91.9 F L 118 H 108 H 20 93/53 L 95/53 L 99 04/29/21 02:30 101 H 28 H 99 04/29/21 02:15 98.6 F 118 H 118 H 17 145/97 H 96 04/29/21 02:00 122 H 12 98 04/29/21 01:45 127 H 10 L 97 04/29/21 01:30 125 H 15 97 04/29/21 01:21 98.2 F 124 H 20 255/140 H 97 04/29/21 01:15 123 H 11 L 97 04/29/21 01:04 121 H 22 98 04/29/21 00:20 98.4 F 101 H 20 205/160 H 96 04/29/21 00:15 116 H 20 195/162 H 98 04/29/21 00:01 85 12 88/55 L 98 04/29/21 00:00 114 H 17 98 04/28/21 23:45 108 H 20 93 04/28/21 23:30 108 H 20 94 04/28/21 23:27 108 H 20 83/52 L 94 04/28/21 23:15 100 H 20 94 04/28/21 23:00 86 20 92 04/28/21 22:59 86 24 PG Care Time/CCT Total # of Minutes Spent Total Time Spent with Patient: Total time spent is greater than 50% in coordination of care (as documented) at patient's floor/unit and/or counseling patient: Coding Diagnoses Suicide attempt by hanging T71.162A Encounter type: initial encounter Cardiac arrest I46.9 Admitted to intensive care unit Z78.9 Seizures R56.9 Hypertension I10 Hypotension I95.9 Hypotension type: unspecified hypotension type (1) Suicide attempt by hanging Encounter type: initial encounter Qualified Code(s): T71.162A - Asphyxiation due to hanging, intentional self-harm, initial encounter (2) Hypotension Hypotension type: unspecified hypotension type Qualified Code(s): I95.9 - Hypotension, unspecified
[2021-04-29] MEDS: FAMOTIDINE 20 MG in SYRINGE 3 ML IV SCH ×2 (09:22→20:45)
--- NOTE | 2021-04-29 09:24 | Communication Note ---
Date of Service: April 29, 2021 Patient seen and examined. EMR reviewed. Discussed with critical care CARMEN overnight. The patient has sustained a significant anoxic brain injury due to a suicide attempt by hanging. His exam this morning is consistent with brain however his core temperature is only 33.5. On my exam he has fixed and dilated pupils. No corneal reflexes. No oculocephalic reflexes and negative cold calorics. His CO2 level was already elevated so by definition he has failed an apnea test. His initial CT scan already showed loss of abel-white matter diff erentiation with loss of sulci so I suspect his downtime is much longer than reported. This would go along with his marked elevation in AST and ALT. We will plan on passively warming the patient to 36 and then repeating his determination. Discussed with the admitting hospitalist. We will plan on repeating his exam and the 2 of us may be able to declare the patient brain later today without need for secondary confirmatory tests. Case management is apparently trying to get clearance from the residential to talk to family members. Coding Level of Care Code Critical Care rashid dill'jhon 30 min Time Spent (min) 45 Comment [id number]
--- NOTE | 2021-04-29 10:23 | CT Scan Report ---
CT cervical spine wo con CLINICAL HISTORY: hanging, cardiac arrest TECHNIQUE: Multidetector row helical CT of the cervical spine was performed without administration of intravenous contrast. Coronal and sagittal reformations were obtained. Automated dose lowering techn iques and/or adjustment according to patient size were utilized for this exam. Comparison: None available at the time of this dictation. FINDINGS: No acute fractures or subluxations are identified. The alignment is normal. The vertebral body height s and disk spaces are well maintained. Incidentally noted is looping of the enteric tube within the l arynx. IMPRESSION: 1. No evidence of acute bony injury. 2. The enteric tube is looped within the larynx. ACT 112: Negative or not required by law. Electronically signed by: Chava Johnson M.D. 04/29/2021 10:22 AM
--- NOTE | 2021-04-29 10:28 | CT Scan Report ---
CT angio neck with con, CT angio head w con CLINICAL HISTORY: hanging, cardiac arrest TECHNIQUE: CT angiography of the head and neck was performed following intravenous administration of iodinated contrast. Automated dose lowering techniques and/or adjustment according to patient size we re utilized for this examination. Comparison: None available at the time of this dictation. FINDINGS: CTA Neck: A 3 vessel aortic arch is shown. There is no significant atherosclerotic plaque in the aor tic arch or the origins of the innominate, left common carotid, and left subclavian arteries. The co mmon carotid, external carotid, cervical segments of the internal carotid arteries, and the cervical segments of the vertebral arteries are patent. There is no hemodynamically significant diameter sten osis or dissection present. The left vertebral artery is dominant. Lungs and soft tissues are unremar kable. CTA Head: The anterior and posterior cerebral circulations are patent. No hemodynamically significan t stenosis, aneurysm, dissection, or arteriovenous malformation is shown. Atherosclerotic disease is noted. Partially visualized loss of abel-white differentiation compatible with global anoxic event. IMPRESSION: 1. Partially visualized loss of abel-white differentiation compatible with global anoxic event. 2. No occlusion, hemodynamically significant stenosis, aneurysm, dissection, or arteriovenous malfor mation in the major intracranial arteries. 3. No occlusion, hemodynamically significant stenosis, or dissection in the major cervical arteries. Assessment of stenosis of the internal carotid arteries is based on NASCET criteria. ACT 112: Negative or not required by law. Electronically signed by: Chava Johnson M.D. 04/29/2021 10:26 AM
--- NOTE | 2021-04-29 10:36 | Electrocardiogram Report ---
Test Reason : Blood Pressure : / mmHG Vent. Rate : 090 BPM Atrial Rate : 090 BPM P-R Int : 172 ms QRS Dur : 100 ms QT Int : 412 ms P-R-T Axes : 079 064 061 degrees QTc Int : 504 ms Normal sinus rhythm ST depression, consider subendocardial injury (anterolateral ischemia) Prolonged QT Abnormal ECG When compared with ECG of 26-APR-2021 16:46, ST now depressed in Anterolateral leads QT has lengthened Confirmed by Víctor Salmeron ([id number]) on 04/29/2021 10:35:41 AM Referred By: Barbara SCI Confirmed By:Víctor Salmeron
[2021-04-29] MEDS: dexAMETHasone 6 MG in SYRINGE 0 ML IV SCH ×2 (13:03→20:45)
[2021-04-29 14:40] LABS: iSTAT Arterial Blood Gas HCO3 18 meg/L (19-24); iSTAT Arterial Blood Gas pCO2 42 mmHg (35-46); iSTAT Arterial Blood Gas pH 7.25 (7.35-7.45); iSTAT Arterial Blood Gas pO2 136 mmHg (80-95); iSTAT Carbon Dioxide 19 mmol/L (24-31); iSTAT FiO2 50 %; iSTAT Site Art Line
--- NOTE | 2021-04-29 15:05 | Communication Note ---
Date of Service: April 29, 2021 Reassessed patient from earlier today with Dr. Carreno. The patient is now warmed with a core temperature greater than 36. Pupils are fixed and dilated. No oculocephalic or corneal reflexes. No withdrawal to supraorbital pressure. Patient does not withdraw to painful stimulus in the extremities or to sternal rub. He is not overbreathing the ventilator and remains acidotic with a pH of 7.25 and a CO2 of 40. Cold calorics were conducted with no movement of the eyes. Per [facility] protocol, this constitutes to serial exa ms by over 4 hours consistent with brain . He has a mechanism of injury consistent with brain that is irreversible. He has persistent coma disease. There are no distracting injuries and no confounding medications. His exam is consistent with brain . Time of . Additional interventions per Dr. Carreno. Coding Level of Care Code Critical Care ea addt'l 30 min Time Spent (min) 40
--- NOTE | 2021-04-29 15:43 | Death Pronouncement Note ---
Date of Service April 29, 2021 Pronouncement Note Admission Date Admission Date: April 29, 2021 Date and Time of Date of : 04/29/21 Time of : 15:00 Contributing Factors (1) in medical facility: Contributing factors: In conjunction with intensive care unit attending Dr. Dimas. Patient was reassessed with a core body temperature greater than 36. Pupils were fixed and dilated. No oculocephalic or corneal reflexes were present. There is no withdrawal to suborbital pressure. Patient did not withdrawal to painful stimulus to extremities or sternal rub. Patient was not overbreathing the ventilator and remained acidotic with a pH of 7.25. Dr. Stovall conducted cold calorics without movement of the eyes. Subsequently per the protocol our facility to physicians will clear the patient at 1500 hrs. at the time these tests were conducted there were no distracting injuries or confounding medications. Date of is 04/29/2021. Time of is 1500 hrs. time cause of is contributed to by hanging pt is continued on life support while [employer] evaluates the pt for possibility of organ donation (2) Suicide attempt by hanging: Contributing factors: according to icu nursing staff the pt was reportedly unaccounted for to approx 40 minutes between last check and when he was found (3) Cardiac arrest: (4) Seizures: Contributing factors: pt was placed on iv keppra prior to his (5) Hypotension: Contributing factors: pt did require pressors prior to his Hospital Course Hospital Course: The patient is brought to the emergency department via EMS from [facility] after a suicide attempt with cardiac arrest and status post ROSC Primary Care Provider: ANABELA Jimenez The patient is a 35-year-old male with past medical history including seizure disorder, status epilepticus with hospitalization from 04/26-04/27 due to not taking medications, hypertension and asthma. Patient was found by [facility] staff after unknown period of time following attempted hanging, and intubated in the field by EMS, and received epinephrine due to hypotension. Upon arrival to the ED, patient had blood pressure 60s/40s, heart rate 90s-100s on mechanical ventilator. Pupils were fixed and dilated with no corneal reflex. CT scan of head without contrast showed diffuse cerebral edema. Significant laboratories: Creatinine 2.23, glucose 204, lactate 9.2, phosphorus 11.3, AST 1104, ALT 1168, troponin 0.067 and lipase 452. Summary Additional details: this is a coroners case, and gift of life is present at the bedside Given coordination with intensive care unit team discussion with [facility] staff and gift of life additional calling family greater than 30 minutes were required to prepare this discharge summary Additional Data Family: contacted (Mary Kay called when informed she shrieked and hung up) Attending physician: Finn Carreno MD home office claims examiner notified?: Yes Organ bank notified?: Yes Advance directives: No Coding Level of Care Code D/C DAY MANAGEMENT >30 MINS Diagnoses Suicide attempt by hanging T71.162A Encounter type: initial encounter Cardiac arrest I46.9 Seizures R56.9 Hypotension I95.9 Hypotension type: unspecified hypotension type in medical facility R99; Y92.89
[2021-04-30] MEDS: levETIRAcetam 1,500 MG in 0.9 % SODIUM CHLORIDE 100 ML IV SCH ×2 (02:26→13:01)
[2021-04-30] MEDS: dexAMETHasone 6 MG in SYRINGE 0 ML IV SCH ×2 (03:37→13:01)
[2021-04-30] MEDS: FAMOTIDINE 20 MG in SYRINGE 3 ML IV SCH ×2 (07:34→20:07)
[2021-04-30] MEDS: SODIUM CHLORIDE 0.9% 1000ML 1,000 ML IV SCH ×2 (07:34→20:08)
[2021-04-30 09:52] LABS: iSTAT Arterial Blood Gas HCO3 19 meg/L (19-24); iSTAT Arterial Blood Gas pCO2 44 mmHg (35-46); iSTAT Arterial Blood Gas pH 7.25 (7.35-7.45); iSTAT Arterial Blood Gas pO2 108 mmHg (80-95); iSTAT Carbon Dioxide 21 mmol/L (24-31); iSTAT FiO2 50 %; iSTAT Site Art Line
--- NOTE | 2021-04-30 10:32 | XRay Report ---
XR chest 1V portable CLINICAL HISTORY: intubation TECHNIQUE: Single frontal radiograph of the chest was obtained. Comparison: Comparison is made to chest one view 04/28/2021 FINDINGS: Endotracheal tube terminates 4.2 cm from the steve. Enteric tube courses below the diaphragm. The ca rdiomediastinal silhouette is normal. The lungs are clear. Small left pleural effusion. IMPRESSION: 1. Satisfactory position of endotracheal and enteric tubes. 2. Small left pleural effusion. ACT 112: Negative or not required by law. Electronically signed by: Chava Johnson M.D. 04/30/2021 10:30 AM
--- NOTE | 2021-04-30 14:02 | Hospitalist Progress Note ---
Date of Service April 30, 2021 Assessment & Plan (1) in medical facility: Plan: Pt was declared brain at 1500 hours 04/29/12. I repeated brain stem refelx testing today approximately at 1330 once again without any response. Pt with ABG showing metabolic acidosis likely result of anoxic tissue injury, Ph remains 7.25 cr is stable (2) Suicide attempt by hanging: Plan: Suicide attempt by hanging/cardiac arrest- Intubated in field Continue mechanical ventilator at this time, despite being declared , family was insistent that he not be taken off ventilator and support, although in this situation it is not clear that the family has any grounds to ask this request, we will honor their request until the time we can convene ethics consult, anticipated this to be 05/01/21 Hypotension in the ED improved by Levophed, tapering off as able (3) Cardiac arrest: Plan: Pt has lateral st depression on ECG on intake troponin is uptrending echocardiogram with depressed EF to 30-35% (4) Seizures: Plan: Patient was recently admitted to [facility] due to status epilepticus associated with medication noncompliance Place on Keppra 1500 mg IV twice daily, Holding topiramate and gabapentin while n.p.o. (5) Hypotension: Plan: Responded to IV fluids and Levophed Admission and Anticipated Discharge Date Admission Date: April 29, 2021 Subjective pt is unresponsive to pain or other stimuli, on ventalator Review of Systems Review of Systems: Unobtainable due to cognitive status Physical Exam Physical Exam: Patient was reassessed with a core body temperature greater than 36. Pupils were fixed and dilated. No oculocephalic or corneal reflexes were present. There is no withdrawal to suborbital pressure. Patient did not withdrawal to painful stimulus to extremities or sternal rub. Patient was not overbreathing the ventilator and remains acidotic with a pH of 7.25. I conduc hayley cold calorics, oculovestibular reflexes, without movement of the eyes, at the time these tests were conducted there were no distracting injuries noted on his body and he was not on confounding medications. breath sounds are bilateral and coarse, heart tones are tachycardic, no peripheral edema is noted Results & Data Results & Data ([facility]) Vital Signs (Past 12 Hours) Vital Signs Temp Pulse Resp BP Pulse Ox 04/30/21 12:45 98.1 F 141 H 14 91 04/30/21 12:30 97.9 F 138 H 14 91 04/30/21 12:15 97.3 F L 134 H 14 91 04/30/21 12:00 97.0 F L 130 H 14 85 L 04/30/21 11:45 96.6 F L 126 H 14 91 04/30/21 11:30 96.3 F L 123 H 14 92 04/30/21 11:15 95.9 F L 120 H 14 92 04/30/21 11:00 95.5 F L 116 H 13 04/30/21 10:55 116 H 16 92 04/30/21 10:45 95.2 F L 114 H 14 92 04/30/21 10:30 94.8 F L 112 H 14 92 04/30/21 10:15 94.6 F L 108 H 14 92 04/30/21 10:00 94.5 F L 107 H 14 04/30/21 09:45 94.3 F L 104 H 14 93 04/30/21 09:30 94.3 F L 103 H 14 93 04/30/21 09:15 94.5 F L 105 H 14 93 04/30/21 09:00 94.5 F L 104 H 16 137/100 93 04/30/21 08:45 94.6 F L 104 H 14 92 04/30/21 08:30 94.6 F L 104 H 14 92 04/30/21 08:15 94.8 F L 105 H 14 92 04/30/21 08:00 94.8 F L 106 H 14 90 04/30/21 07:55 105 H 16 93 04/30/21 07:45 95.0 F L 105 H 14 92 04/30/21 07:30 95.0 F L 106 H 14 93 04/30/21 07:15 95.0 F L 105 H 14 93 04/30/21 07:00 95.2 F L 106 H 14 91 04/30/21 05:00 95.7 F L 106 H 16 146/97 H 91 04/30/21 04:00 95.9 F L 106 H 16 131/89 93 04/30/21 03:00 96.1 F L 105 H 16 91 04/30/21 02:54 108 H 16 93 04/30/21 02:00 96.4 F L 107 H 16 143/100 H 93 PG Care Time/CCT Total # of Minutes Spent Total Time Spent with Patient: Total time spent is greater than 50% in coordination of care (as documented) at patient's floor/unit and/or counseling patient: Coding Level of Care Code 66439 Subseq Hosp Care Lvl 3 Diagnoses in medical facility R99; Y92.89 Suicide attempt by hanging T71.162A Encounter type: initial encounter Cardiac arrest I46.9 Seizures R56.9 Hypotension I95.9 Hypotension type: unspecified hypotension type (1) Suicide attempt by hanging Encounter type: initial encounter Qualified Code(s): T71.162A - Asphyxiation due to hanging, intentional self-harm, initial encounter (2) Hypotension Hypotension type: unspecified hypotension type Qualified Code(s): I95.9 - Hypotension, unspecified
[2021-04-30] MEDS: NOREPINEPHRINE/D5W 8 MG/508 ML BAG IV SCH ×2 (15:27→23:13)
--- NOTE | 2021-04-30 20:01 | Communication Note ---
Date of Service: April 30, 2021 ethics note: case d/w primary physician, chart reviewed case discussed with several ethics members: dr go, dr childers, layla felix. overall very unfortunate situation, but patient appears to be showing criteria for brain , and therefore ethically the situation would be clear that terminal extubation would be supported. as far as the difficulty of the family accepting this, committee members suggested reaching out to the family again re-explaining brain being synonymous with , possibly allowing the family to visit so that family could see the situation first hand, or a neurology consult; while three physicians corroborating brain would certainly not be medically necessary or legal necessity, it may help with family acceptance.
[2021-05-01] MEDS: levETIRAcetam 1,500 MG in 0.9 % SODIUM CHLORIDE 100 ML IV SCH ×2 (01:22→15:04)
[2021-05-01] MEDS: SODIUM CHLORIDE 0.9% 1000ML 1,000 ML IV SCH ×2 (06:12→15:05)
[2021-05-01] MEDS: FAMOTIDINE 20 MG in SYRINGE 3 ML IV SCH (07:27)
--- NOTE | 2021-05-01 20:49 | Discharge Summary ---
Date of Service May 01, 2021 Admission HPI Per Admitting Provider The patient is a 35-year-old male with past medical history including seizure disorder, status epilepticus with hospitalization from 04/26-04/27 due to not taking medications, hypertension and asthma. Patient was found by skilled nursing staff after unknown period of time following attempted hanging, and intubated in the field by EMS, and received epinephrine due to hypotension. Upon arrival to the ED, patient had blood pressure 60s/40s, heart rate 90s-100s on mechanical ventilator. Pupils were fixed and dilated with no corneal reflex. CT scan of head without contrast showed diffuse cerebral edema. Significant laboratories: Creatinine 2.23, glucose 204, lactate 9.2, phosphorus 11.3, AST 1104, ALT 1168, troponin 0.067 and lipase 452. Principal Diagnosis allegedly from suicide by hanging brain criteria 04/29/21 at 1500 ceased cardiac function 1937 hours 05/01/21 Discharge Exam pt was examined after ventilator was stopped, did not have any respiratory function, did have cardiac electrical activity for some time without pulse and this eventually ceased at 1937 hours. Father and sister were present at the bedside Discharge Data Allergies Allergy/AdvReac Type Severity Reaction Status Date / Time brown Allergy Unknown Unknown Verified 04/29/21 07:35 onion Allergy Unknown Unknown Verified 04/29/21 07:35 Penicillins Allergy Unknown Unknown Verified 04/29/21 07:35 Consultations 04/29/21 00:09 ED Decision to Admit Stat 04/29/21 02:33 Consult Welt Maker Routine Ordered Studies 04/28/21 23:02 CT angio head w con Urgent CT angio neck with con Urgent CT cervical spine wo con Urgent CT head/brain wo con Urgent Hospital Course (1) in medical facility: Pt was declared brain at 1500 hours 04/29/12. I repeated brain stem refelx testing today approximately at 1330 once again without any response. Pt with ABG showing metabolic acidosis likely result of anoxic tissue injury, Ph remains 7.25 cr is stable (2) Suicide attempt by hanging: Suicide attempt by hanging/cardiac arrest- Intubated in field Continued mechanical ventilator, despite being declared ,inrespect to family wishes, ethics consult, 04/30/21 agrees to stop supporting respiratory fuction and try to accomidate family, family arrived 12/13 was present at the bedside cardiac funciton ceased 1937 hours, 05/01/21, pc network technician notified (3) Cardiac arrest: troponin is uptrending echocardiogram with depressed EF to 30-35% (4) Seizures: Patient was recently admitted to [facility] due to status epilepticus associated with medication noncompliance Placed on Keppra 1500 mg IV twice daily, Holding topiramate and gabapentin while n.p.o. (5) Hypotension: Total Time Total Time Spent Total Time Spent (In Minutes): It required greater than 30 minutes to prepare this patient for discharge Discharge Plan Discharge Items Reason For Visit: SUICIDE ATTEMPT, CARDIAC ARREST Follow-up/Referrals: Barbara PEÑALOZA [Primary Care Provider] - Stand-Alone Forms: [facility] Medications and DC Order Prescriptions: No Action trazodone 150 mg Tablet 150 mg PO HS RF: 0 topiramate 50 mg Tablet 50 mg PO HS RF: 0 levalbuterol tartrate [Xopenex HFA] 45 mcg/actuation Hfa Aerosol Inhaler 2 inh INHALATION QID PRN (Reason: Shortness Of Breath Or Wheezing) RF: 0 hydroxyzine HCl 50 mg Tablet 100 mg PO HS RF: 0 amlodipine 10 mg Tablet 10 mg PO DAILY RF: 0 aripiprazole 15 mg Tablet 15 mg PO DAILY RF: 0 gabapentin 100 mg capsule 100 mg PO TID 30 Days Qty: 90 RF: 0 levetiracetam 750 mg tablet 1,500 mg PO BID RF: 0 Admission Data Admit Date/Time: 04/29/21 01:14 Attending Provider: Finn Carreno Admit Provider: Manuel Christianson Primary Care Provider: Barbara PEÑALOZA Other Providers: Manuel Christianson ; Marco Dimas Coding Level of Care Code D/C DAY MANAGEMENT >30 MINS Diagnoses in medical facility R99; Y92.89 Suicide attempt by hanging T71.162A Encounter type: initial encounter Cardiac arrest I46.9 Seizures R56.9 Hypotension I95.9 Hypotension type: unspecified hypotension type
== END 2021-05-01 19:37 | disposition expired | DRG 922 ==
LOC: ED 22:54 → 1E 04-29 01:14 → SUATTDRO 04-29 01:14 → 1E 04-29 02:33